=== PATIENT | female | born 1935 | race Caucasian/White ===

== ENCOUNTER 2018-01-08 22:50 | Inpatient (IN) | payer MEDICARE, BC, MEDICAID ==
--- NOTE | 2018-01-08 23:12 | ERNOTE ---
Dyspnea - General Presenting Symptoms: shortness of breath, difficulty of breathing Time Seen by Provider: 01/08/18 22:54 Source: patient, EMS Exam Limitations: clinical condition - Immun/Allergies/Home Medications Immunizations: IMMUNIZATION HX Immunizations Up to Date Yes History of Influenza Vaccine Yes Hx Pneumococcal Vaccination Yes Allergies/Adverse Reactions: Allergies azithromycin [From Zithromax] Adverse Reaction (Verified 01/08/18 22:59) Muscle Pain ciprofloxacin [From Cipro] Adverse Reaction (Verified 01/08/18 22:59) ciprofloxacin HCl [From Cipro] Adverse Reaction (Verified 01/08/18 22:59) levofloxacin [From Levaquin] Adverse Reaction (Verified 01/08/18 22:59) Muscle Pain Home Medications: HOME MEDICATIONS ALPRAZolam [Xanax] 0.25 mg PO TID PRN 05/26/16 [Last Taken Unknown] Albuterol Sulfate 2.5 mg IH QID 05/26/16 [Last Taken Unknown] Albuterol Sulfate [Proair Hfa] 2 puff IH Q4H PRN 05/26/16 [Last Taken Unknown] Aspirin 81 mg PO DAILY 05/26/16 [Last Taken Unknown] Atorvastatin Calcium 40 mg PO HS 05/26/16 [Last Taken Unknown] B-Complex with Vitamin C [Vitamin B-Complex & C] 1 each PO DAILY 05/26/16 [Last Taken Unknown] Cholecalciferol (Vitamin D3) [Vitamin D3] 5,000 unit PO DAILY 05/26/16 [Last Taken Unknown] Docusate Sodium [Stool Softener] 50 mg PO PRN PRN 05/26/16 [Last Taken Unknown] Enalapril Maleate [Vasotec] 2.5 mg PO DAILY 05/26/16 [Last Taken Unknown] Formoterol Fumarate [Perforomist] 1 vial IH BID 05/26/16 [Last Taken Unknown] Nitroglycerin 0.4 mg SL Q5MX3 PRN 05/26/16 [Last Taken Unknown] Oxygen 3.5 l IH DAILY 05/26/16 [Last Taken Unknown] Polyethylene Glycol 3350 [Miralax] 17 gm PO PRN PRN 05/26/16 [Last Taken Unknown ] Albuterol Sulfate [Ventolin HFA] 2 puff IH Q4H PRN 10/18/16 [Last Taken Unknown] Furosemide [Lasix] 20 mg PO DAILY 10/18/16 [Last Taken Unknown] HYDROcodone/ACETAMINOPHEN [Hydrocodon-Acetamin 7.5-325/15] 15 ml PO Q6H PRN [Last Taken Unknown] Ipratropium [place] [Atrovent] 0.5 mg IH Q6H 10/18/16 [Last Taken Unknown] Morphine Sulfate [Morphine Sulfate Conc. Oral Solution] 5 mg PO Q4H PRN [Last Taken Unknown] predniSONE [Jax] 10 mg PO DAILY 10/18/16 [Last Taken Unknown] Acetylcysteine [Mucomyst 20%] 800 mg IH Q12H #20 vial 10/25/16 [Last Taken Unknown] Cefdinir [Omnicef] 300 mg PO BID #8 capsule 10/25/16 [Last Taken Unknown] predniSONE [Prednisone] See Taper PO DAILY #30 tablet 10/25/16 [Last Taken Unknown] Doxycycline Monohydrate 100 mg PO BID #20 tablet 11/15/17 [Last Taken Unknown] predniSONE [Prednisone] 3 tab PO DAILY #9 tab 11/15/17 [Last Taken Unknown] - History of Present Illness Narrative: Pt had onset of cough and fever approx 3 days ago. She was seen by Dr. Butler in the office today and was sent home with cefdinir and prednisone. She continued to worsen. Upon arrival pt is on 12 lpm per NRB Severity: moderate, severe Treatment [employer] INTELLIGENCE OFFICER: paramedics Initiating event: Reports: unknown Modifying Factors - (Improves): Reports: albuterol, oxygen Review of Systems - Review of Systems Constitutional: Present: recent illness, fever, chills, fatigue, malaise EYE: Present: no symptoms reported ENT: Present: nasal drainage Respiratory: Present: shortness of breath, cough, wheezing Cardiology: Absent: chest pain, palpitations Gastrointestinal/Abdominal: Present: no symptoms reported - Patient's Past Medical History Patient History - Medical: Anxiety, Arthritis, Diabetes Type 2, GERD, UTI'S Patient History - Cardiac/Respiratory: COPD Patient History - Cancer: No Hx of Cancer Patient History - Surgical Procedures: Angioplasty, Cholecystectomy, Colonoscopy , D & C, Other Patient History - Other: Chronic Steroid Therapy - Family History Mother Family History - Medical: Dementia Family History - Cardiac/Respiratory: Hypertension Father Family History - Medical: Family History - Cardiac/Respiratory: Asthma, Coronary Heart Disease - Social History Abuse History: No History of abuse Psych History: No pertinent hx - Immunizations Immunizations Up to Date: Yes Hx Pneumococcal Vaccination: Yes History of Influenza Vaccine: Yes Physical Exam - Physical Exam General Appearance: Present: wd/wn, alert, mild distress Head Exam: Present: normal inspection, no evidence of injury Ears, Nose, Throat: Present: normal ENT inspection Neck: Present: normal inspection, nontender Respiratory: Present: no accessory muscle use, rhonchi, wheezing Cardiovascular/Chest: Present: regular rate, rhythm Extremity Exam: Present: normal inspection, non-tender, pedal edema Neurological Exam: Present: alert, oriented, no motor/sensory deficits Skin Exam: Present: normal color, warm/dry Lymphatic Exam: Present: no adenopathy ED Progress - Results and Orders Patient's Lab Results:: I have reviewed the patient's lab results. Results and Orders: Laboratory Tests 01/08/18 01/08/18 01/08/18 22:59 23:10 23:10 WBC 16.7 H Hgb 11.0 L Hct 36.4 L Plt Count TNP Neutrophils % 87.2 H pCO2 102.4 H* pO2 363.4 H HCO3 40.5 H Total CO2 43.6 H Base Excess 9.4 H ABG pH 7.22 L ABG O2 Sat (Measured) 99.7 H Sodium 138 Potassium 4.9 H Chloride 99 Carbon Dioxide 37.0 H BUN 12 Creatinine 0.61 Random Glucose 167 H Calcium 8.6 Total Bilirubin 0.3 AST 28 ALT 26 Alkaline Phosphatase 99 B-Natriuretic Peptide 895 H Total Protein 6.6 Albumin 2.1 L Influenza Type A Ag Influenza Type B Ag 01/08/18 23:10 WBC Hgb Hct Plt Count Neutrophils % pCO2 pO2 HCO3 Total CO2 Base Excess ABG pH ABG O2 Sat (Measured) Sodium Potassium Chloride Carbon Dioxide BUN Creatinine Random Glucose Calcium Total Bilirubin AST ALT Alkaline Phosphatase B-Natriuretic Peptide Total Protein Albumin Influenza Type A Ag Negative Influenza Type B Ag Negative Laboratory Tests 01/09/18 01:12 pCO2 84.5 H* pO2 110.6 H HCO3 37.7 H Total CO2 40.3 H Base Excess 8.2 H ABG pH 7.27 L ABG O2 Sat (Measured) 97.1 - Vital Signs Patient's Vital Signs:: I have reviewed the patient's vital signs. - EKG EKG: NSR EKG read: Interp. by me EKG Comments: Old [place]. No acute ST-T wave changes - X-Ray X-Ray #1 X-Ray: chest Interpretation: Interp. by me X-ray Comments: mild pulmonary edema RLL infiltrate. - Progress/Reassessment Progress:: Improved Progress Note-Subjective: 01/08/2018 23:15 ABG showed high O2 and CO2, O2 reduced to keep SaO2 93-97% 01/09/2018 00:40 ABG #2 improved over initial, CO2 still high 01/09/18 02:00 spoke with Lilli GARICA hospitalist. She will see the patient in the ED and would like me to initiate Bi-PAP in the ED and make sure the patient tolerates it. 01/09/18 02:49 Pt tolerating BiPAP well, admission orders in progress Departure Clinical Impression: Community acquired bacterial pneumonia CHF (congestive heart failure) Qualifiers: Congestive heart failure type: systolic Congestive heart failure chronicity: acute on chronic Qualified Code(s): I50.23 - Acute on chronic systolic ( congestive) heart failure - Departure Disposition: Still a patient Condition: Stable
[2018-01-08 23:15] LABS: Hematocrit 36.4 % (37.0-47.0); Mean Cell Volume 96.6 fl (78-100); Mean Corpuscular Hemoglobin 29.2 pg (27-31); Mean Corpuscular Hgb Conc 30.2 g/dl (32-36); Neutrophil # 14.6 K/mm3 (1.3-6.0); Neutrophil % 87.2 % (42-75.0); Red Blood Count 3.77 M/mm3 (4.2-5.4); Red Cell Distribution Width 13.6 % (11.5-14.0); White Blood Count 16.7 K/mm3 (4.0-10.5)
[2018-01-08 23:40] LABS: Albumin * 2.1 gm/dl (3.4-5.0); Anion Gap 6.9 mmol/L (6.8-13.8); BUN/Creatinine Ratio 19.7 (9.0-21.6); Bilirubin, Total 0.3 mg/dL (0.0-1.1); Ca. Corrected For Albumin 9.8 mg/dL (8.4-10.2); Calcium * 8.6 mg/dL (7.9-10.9); Potassium 4.9 mmol/L (3.4-4.6); Total Protein 6.6 gm/dL (6.2-8.2)
[2018-01-09] MEDS ORDERED: FUROSEMIDE 10 MG/ML VIAL IV ONE (02:47)
[2018-01-09] MEDS ORDERED: FUROSEMIDE 10 MG/ML VIAL ONE (02:54)
[2018-01-09] MEDS: ALBUTEROL SULFATE/IPRATROPIUM 3 ML NEBU IH SCH ×6 (04:14→22:10)
--- NOTE | 2018-01-09 05:21 | HP ---
Chief Complaint - Chief Complaint Date of Service: 01/09/18 Time of Service: 05:00 Chief Complaint: ' Worsening SOB, Desaturations to 85% RA'. Source of HPI- Pt ; unreliable, ERP report, Pt's EMR. History of Present Illness: Mrs. Gordon is a 82-yr-old [place] pt of Dr. Humberto Butler with a PMH of: AAA, Anxiety, COPD, Chronic Respiratory failure, DM II, GERD, HTN, Hiatal Hernia, Migraines and UT. History is unobtainable from the pt due to lethargic state of consciousness. According to the ERP, pt was brought to the [facility] ER due to worsening SOB unrelieved by treatments prescribed during an office visit yesterday. She was seen for URI and was started on Prednisone and Cefdinir. She was found to have Pox levels of 85% RA by the EMS and 4 L was applied en- route to the hospital. However, it is reported that she continued to appear pale /dusky and EMS titrated her to nearly 12 L of Oxygen on a NRB to keep POX above 90%. Work-up at the ED involved ABG which showed uncompensated Respiratory acidosis. Lab studies showed WBC--> 16,700 with a LT shift & BNP -->895, & K--> 4.9, Otherwise all other labs were mostly unremarkable. The CXR showed Pneumonia noted with RLL infiltrate and also mild pulm. Edema. BIPAP initiated at the ED and the pt seemed to tolerate it well. Repeat ABGs showed a very slight improvement. Pt will need to be admitted inpatient for a minimum of 2 midnight due to Acute Hypercapnic Resiratory Failure. - Patient's Past Medical History Patient History - Medical: Anxiety, Arthritis, Diabetes Type 2, GERD, UTI'S Patient History - Cardiac/Respiratory: COPD Patient History - Cancer: No Hx of Cancer Patient History - Surgical Procedures: Angioplasty, Cholecystectomy, Colonoscopy , D & C, Other Patient History - Other: Chronic Steroid Therapy - Family History Mother Family History - Medical: Dementia Family History - Cardiac/Respiratory: Hypertension Father Family History - Medical: Family History - Cardiac/Respiratory: Asthma, Coronary Heart Disease - Social History Living Situations: home Abuse History: No History of abuse Psych History: No pertinent hx Smoking Status: Former smoker Have you smoked in the past 12 months: No Do you dip or chew tobacco: No Patient requests Smoking Cessation Consult: No Initiate information on Smoking Cessation: No Alcohol Use: none Drug Use: none - Immunizations Immunizations Up to Date: Yes Hx Pneumococcal Vaccination: Yes History of Influenza Vaccine: Yes Review Of Systems (GEN) - Review of Systems Additional Comments: ROS unobtainable due to AMS. Immunizations: IMMUNIZATION HX Immunizations Up to Date Yes History of Influenza Vaccine Yes Hx Pneumococcal Vaccination Yes Allergies/Adverse Reactions: Allergies Allergy/AdvReac Type Severity Reaction Status Date / Time azithromycin [From Zithromax] AdvReac Muscle Pain Verified 01/08/18 22:59 ciprofloxacin [From Cipro] AdvReac Verified 01/08/18 22:59 ciprofloxacin HCl AdvReac Verified 01/08/18 22:59 [From Cipro] levofloxacin [From Levaquin] AdvReac Muscle Pain Verified 01/08/18 22:59 Home Medications: HOME MEDICATIONS ALPRAZolam [Xanax] 0.25 mg PO TID PRN 05/26/16 [Last Taken Unknown] Albuterol Sulfate 2.5 mg IH QID 05/26/16 [Last Taken Unknown] Albuterol Sulfate [Proair Hfa] 2 puff IH Q4H PRN 05/26/16 [Last Taken Unknown] Aspirin 81 mg PO DAILY 05/26/16 [Last Taken Unknown] Atorvastatin Calcium 40 mg PO HS 05/26/16 [Last Taken Unknown] B-Complex with Vitamin C [Vitamin B-Complex & C] 1 each PO DAILY 05/26/16 [Last Taken Unknown] Cholecalciferol (Vitamin D3) [Vitamin D3] 5,000 unit PO DAILY 05/26/16 [Last Taken Unknown] Docusate Sodium [Stool Softener] 50 mg PO PRN PRN 05/26/16 [Last Taken Unknown] Enalapril Maleate [Vasotec] 2.5 mg PO DAILY 05/26/16 [Last Taken Unknown] Formoterol Fumarate [Perforomist] 1 vial IH BID 05/26/16 [Last Taken Unknown] Nitroglycerin 0.4 mg SL Q5MX3 PRN 05/26/16 [Last Taken Unknown] Polyethylene Glycol 3350 [Miralax] 17 gm PO PRN PRN 05/26/16 [Last Taken Unknown ] Albuterol Sulfate [Ventolin HFA] 2 puff IH Q4H PRN 10/18/16 [Last Taken Unknown] Furosemide [Lasix] 40 mg PO DAILY 10/18/16 [Last Taken Unknown] Ipratropium [place] [Atrovent] 0.5 mg IH Q6H 10/18/16 [Last Taken Unknown] Morphine Sulfate [Morphine Sulfate Conc. Oral Solution] 2.5 ml PO Q4H PRN [Last Taken Unknown] Cefdinir [Omnicef] 300 mg PO BID #8 capsule 10/25/16 [Last Taken Unknown] Ascorbic Acid [Vitamin C] 1,000 mg PO BID 01/09/18 [Last Taken Unknown] predniSONE [Prednisone] 10 mg PO DAILY 01/09/18 [Last Taken Unknown] predniSONE [Prednisone] See Taper PO DAILY 01/09/18 [Last Taken Unknown] Exam - Exam Vital Signs: Vital Signs - Last Taken Temp 36.5 C 01/09/18 03:15 Pulse 80 01/09/18 04:14 Resp 18 01/09/18 04:14 BP 135/77 01/09/18 04:06 Pulse Ox 95 01/09/18 04:14 Constitutional: Present: Mild distress, Somnolent, Elderly ENT Exam: Present: normal ENT inspection Eye Exam: bilateral eye: normal inspection, PERRL Neck: Present: non-tender, full range of motion, supple Back Exam: Present: normal inspection Respiratory: Present: decreased breath sounds, rales - RT base, No wheezing Cardiovascular/Chest: Present: normal peripheral pulses, regular rate, rhythm, no chest tenderness Abdomen: Present: Normal bowel sounds, soft, nontender /Rectal: Present: Exam deferred Extremity: Present: normal range of motion, non-tender, normal inspection, no pedal edema Skin Exam: Present: warm/dry, no cyanosis Lymphatic: Present: no adenopathy Neurologic: Present: no motor/sensory deficits, other - GSC score of 9 Appearance: Present: impaired insight Eye contact: Absent: cooperative, normal speech Thoughts: Present: no apparent hallucination Diagnostic Studies: Abnormal Lab Results 01/09/18 Range/Units 03:09 pCO2 81.2 H* (32.0-45.0) mmHg pO2 64.2 L (83.0-108.0) mmHg HCO3 39.3 H (21.0-28.0) mmol/L Total CO2 41.8 H (19.0-24.0) mmol/L Base Excess 10.3 H (-2.0-3.0) mmol/L ABG pH 7.30 L (7.35-7.45) ABG O2 Sat (Measured) 89.2 L (94.0-98.0) % Laboratory Results WBC 16.7 K/mm3 (4.0-10.5) H 01/08/18 23:10 RBC 3.77 M/mm3 (4.2-5.4) L 01/08/18 23:10 Hgb 11.0 gm/dL (12.5-16.0) L 01/08/18 23:10 Hct 36.4 % (37.0-47.0) L 01/08/18 23:10 MCV 96.6 fl (78-100) 01/08/18 23:10 MCH 29.2 pg (27-31) 01/08/18 23:10 MCHC 30.2 g/dl (32-36) L 01/08/18 23:10 RDW 13.6 % (11.5-14.0) 01/08/18 23:10 Plt Count TNP 01/08/18 23:10 MPV 10.0 fl (6.0-9.5) H 01/08/18 23:10 Immature Gran % (Auto) 0.80 % (0.001-0.429) H 01/08/18 23:10 Immature Gran # (Auto) 0.13 K/mm3 (0.000-0.0310) H 01/08/18 23:10 Neutrophils % 87.2 % (42-75.0) H 01/08/18 23:10 Lymphocytes % 7.6 % (20-51) L 01/08/18 23:10 Monocytes % 3.9 % (0.0-9) 01/08/18 23:10 Eosinophils % 0.3 % (0.0-3.0) 01/08/18 23:10 Basophils % 0.2 % (0.0-1.0) 01/08/18 23:10 Nucleated RBC % 0.0 k/mm3 (0-1) 01/08/18 23:10 Neutrophils # 14.6 K/mm3 (1.3-6.0) H 01/08/18 23:10 Lymphocytes # 1.3 k/mm3 (1.5-3.5) L 01/08/18 23:10 Monocytes # 0.7 k/mm3 (0.0-1.0) 01/08/18 23:10 Eosinophils # 0.1 k/mm3 (0.0-0.7) 01/08/18 23:10 Absolute Basophils 0.0 k/mm3 (0.0-0.1) 01/08/18 23:10 pCO2 81.2 mmHg (32.0-45.0) H* 01/09/18 03:09 pO2 64.2 mmHg (83.0-108.0) L 01/09/18 03:09 HCO3 39.3 mmol/L (21.0-28.0) H 01/09/18 03:09 Total CO2 41.8 mmol/L (19.0-24.0) H 01/09/18 03:09 Base Excess 10.3 mmol/L (-2.0-3.0) H 01/09/18 03:09 ABG pH 7.30 (7.35-7.45) L 01/09/18 03:09 ABG O2 Sat (Measured) 89.2 % (94.0-98.0) L 01/09/18 03:09 Sodium 138 mmol/L (132-142) 01/08/18 23:10 Plasma Sodium 139 mmol/L (130-142) 01/08/18 23:10 Potassium 4.9 mmol/L (3.4-4.6) H 01/08/18 23:10 Chloride 99 mmol/L (97-106) 01/08/18 23:10 Carbon Dioxide 37.0 mmol/L (24-32.6) H 01/08/18 23:10 Anion Gap 6.9 mmol/L (6.8-13.8) 01/08/18 23:10 BUN 12 mg/dL (3-23) 01/08/18 23:10 Creatinine 0.61 mg/dL (0.4-1.4) 01/08/18 23:10 Est GFR (Non-Af Amer) 100 mL/min (60-130) D 01/08/18 23:10 BUN/Creatinine Ratio 19.7 (9.0-21.6) 01/08/18 23:10 Random Glucose 167 mg/dL (70-110) H 01/08/18 23:10 Lactic Acid, Venous 0.8 mmol/L (0.4-1.9) 01/09/18 01:32 Calcium 8.6 mg/dL (7.9-10.9) 01/08/18 23:10 Calcium Adj for Albumin 9.8 mg/dL (8.4-10.2) 01/08/18 23:10 Total Bilirubin 0.3 mg/dL (0.0-1.1) 01/08/18 23:10 AST 28 U/L (0-48) 01/08/18 23:10 ALT 26 U/L (19-67) 01/08/18 23:10 Alkaline Phosphatase 99 U/L (50-170) 01/08/18 23:10 B-Natriuretic Peptide 895 pg/mL (5-550) H 01/08/18 23:10 Total Protein 6.6 gm/dL (6.2-8.2) 01/08/18 23:10 Albumin 2.1 gm/dl (3.4-5.0) L 01/08/18 23:10 Influenza Type A Ag Negative (NEGATIVE) 01/08/18 23:10 Influenza Type B Ag Negative (NEGATIVE) 01/08/18 23:10 Assessment/Plan - Assessment/Plan (1) Acute hypercapnic respiratory failure Assessment: Pt noted to have somnolence and severe hypercapnea. ABGs showed uncompensated Respiratory acidosis. BiPAP initiated at the ED with IPAP/EPAP of 12/6 to improve ventilation. She tolerated being on it and ABGs had slight improvement. Will continue with the current settings and monitor ABGs in am. Laboratory Tests 01/08/18 01/09/18 01/09/18 22:59 01:12 03:09 pCO2 102.4 H* 84.5 H* 81.2 H* pO2 363.4 H 110.6 H 64.2 L HCO3 40.5 H 37.7 H 39.3 H ABG pH 7.22 L 7.27 L 7.30 L ABG O2 Sat (Measured) 99.7 H 97.1 89.2 L Problem: Acute (2) Pneumonia Assessment: CXR showed RLL. Given Rocephin at the ED but will need addition of macrolide such as Azithromycin, however it is listed on pt's allergy list and also has allergy to the flouroqunolones. May consider treating with Cefepime or Zosyn while inpatient. Problem: Acute Qualifiers: Laterality: right Lung location: lower lobe of lung (3) COPD exacerbation Assessment: Plans as above with Duonebs, IV ax, IV steroids. Problem: Acute (4) GERD (gastroesophageal reflux disease) Problem: Chronic (5) Anemia Problem: Chronic (6) Anxiety Problem: Chronic (7) Hyperlipidemia Problem: Chronic (8) Hypertension Problem: Chronic Qualifiers: Hypertension type: essential hypertension Qualified Code(s): I10 - Essential (primary) hypertension
[2018-01-09 05:46] LABS: Hematocrit 35.5 % (37.0-47.0); Hemoglobin 10.3 gm/dL (12.5-16.0); Mean Cell Volume 99.2 fl (78-100); Mean Corpuscular Hemoglobin 28.8 pg (27-31); Neutrophil # 13.7 K/mm3 (1.3-6.0); Neutrophil % 92.9 % (42-75.0); Platelet Count 326 K/mm3 (150-450); Red Blood Count 3.58 M/mm3 (4.2-5.4); Red Cell Distribution Width 13.6 % (11.5-14.0); White Blood Count 14.7 K/mm3 (4.0-10.5)
[2018-01-09 05:56] LABS: BUN/Creatinine Ratio 17.9 (9.0-21.6); Calcium * 8.6 mg/dL (7.9-10.9); Estimated Creat Clear 60.3
[2018-01-09] MEDS ORDERED: NITROGLYCERIN 0.4 MG/TAB BTL SL PRN (07:20)
[2018-01-09] MEDS ORDERED: DOCUSATE SODIUM 150 MG/15 ML BTL PO PRN (07:20)
[2018-01-09] MEDS ORDERED: MORPHINE SULFATE 10 MG/0.5 ML SYRINGE PO PRN (07:20)
[2018-01-09] MEDS ORDERED: POLYETHYLENE GLYCOL 3350 119 GM BTL PO PRN ×2 (07:20→08:00)
[2018-01-09 07:56] LABS: Urine Appearance Clear; Urine Bacteria None Seen; Urine Bilirubin Negative (NEGATIVE); Urine Blood Negative /ul (NEGATIVE); Urine Color Pale Yellow; Urine Ketone Negative (NEGATIVE); Urine Nitrite Negative (NEGATIVE); Urine Protein Negative (NEGATIVE); Urine RBC None Seen /hpf (0-5); Urine Urobilinogen Normal (NORMAL); Urine WBC None Seen /hpf (0-5)
[2018-01-09] MEDS: METHYLPREDNISOLONE SOD SUCC 80 MG in WATER FOR INJ.,BACTERIOSTATIC 0 ML IV SCH ×4 (08:15→23:46)
[2018-01-09] MEDS: HEPARIN SODIUM,PORCINE 5,000 UNITS/ML VIAL SC SCH ×2 (08:15→17:26)
[2018-01-09] MEDS: CEFEPIME HCL IV SCH ×4 (08:29→20:23)
[2018-01-09] MEDS: DEXTROSE 5% IV SCH ×4 (08:29→20:23)
[2018-01-09] MEDS: WATER IV SCH ×4 (08:29→20:23)
[2018-01-09] MEDS: ASPIRIN 81 MG TAB.CHEW PO SCH (08:30)
[2018-01-09] MEDS: ENALAPRIL MALEATE 5 MG TABLET PO SCH (08:30)
[2018-01-09] MEDS: CHOLECALCIFEROL 5,000 UNIT TABLET PO SCH (08:30)
[2018-01-09] MEDS: ASCORBIC ACID 500 MG TABLET PO SCH ×2 (08:30→20:26)
[2018-01-09] MEDS: VITAMIN B COMP W-C 1 TAB TABLET PO SCH (08:30)
[2018-01-09] MEDS: FORMOTEROL FUMARATE 20 MCG/2 ML VIAL IH SCH ×2 (08:52→18:30)
[2018-01-09] MEDS: ALPRAZolam 0.25 MG TABLET PO PRN ×2 (16:47→22:22)
[2018-01-09] MEDS: ROSUVASTATIN CALCIUM 20 MG TABLET PO SCH (20:26)
[2018-01-09] MEDS: MORPHINE SULFATE 10 MG/0.5 ML SYRINGE PO PRN (22:23)
[2018-01-10] MEDS: ALBUTEROL SULFATE/IPRATROPIUM 3 ML NEBU IH SCH ×6 (02:05→22:37)
[2018-01-10] MEDS: METHYLPREDNISOLONE SOD SUCC 80 MG in WATER FOR INJ.,BACTERIOSTATIC 0 ML IV SCH ×3 (05:21→17:25)
[2018-01-10] MEDS: HEPARIN SODIUM,PORCINE 5,000 UNITS/ML VIAL SC SCH ×2 (05:22→17:25)
[2018-01-10] MEDS: FORMOTEROL FUMARATE 20 MCG/2 ML VIAL IH SCH ×2 (06:07→19:15)
--- NOTE | 2018-01-10 06:34 | OR ---
Anesthesia Procedure Note - Anesthesia Procedure Note Date of Service: 01/10/18 Narrative: Vital Signs - Last Taken Temp 37.2 C 01/10/18 03:00 Pulse 99 01/10/18 06:17 Resp 24 H 01/10/18 06:17 BP 152/70 01/10/18 03:00 Pulse Ox 97 01/10/18 06:07 O2 Oxygen Delivery Method Nasal Cannula 01/10/18 06:33 ANESTHESIA PROCEDURE NOTE Date of Procedure: 01/09/2018 Time of procedure: 0. Performed by: Imtiaz Conde CRNA, ENERGY RATER, MSN Preprocedure diagnosis: Pneumonia, lack of IV access. Post procedure diagnosis: Same. Procedure: Venipuncture for IV access. Indications: Pneumonia, chronic of IV access. Findings: See below. Details of the procedure: The patient was prepped with Betadine and alcohol, 0.1 mL of 1% lidocaine solution was injected at the intended IV site. November 24 gauge IV was initiated in the left hand, flushed and secured. EBL: Minimal. Fluids: N/A. Specimen: N/A. Post procedure condition: The patient tolerated the procedure well. No complications were noted. Thank you for this consultation. Imtiaz Conde CRNA, ENERGY RATER, MSN
[2018-01-10] MEDS: ALPRAZolam 0.25 MG TABLET PO PRN ×2 (06:42→21:31)
[2018-01-10] MEDS: CEFEPIME HCL IV SCH ×4 (06:43→19:29)
[2018-01-10] MEDS: DEXTROSE 5% IV SCH ×4 (06:43→19:29)
[2018-01-10] MEDS: WATER IV SCH ×4 (06:43→19:29)
--- NOTE | 2018-01-10 07:38 | PN ---
Subjective - Date and Time Seen Date: 01/10/18 Time: 07:34 Subjective Narrative: Pt. feels worse this am as she states she didn't hardly sleep all night. She had her xanax and morphine, which usually works well for her at home. Objective - Review of Systems Generalized/Overall Review: Reports: Weakness, Fatigue. Denies: Chills, Fever EENTM: Reports: No Symptoms Reported Respiratory: Reports: Cough, Shortness of Breath Cardiac: Reports: No Symptoms Reported Abdominal: Reports: No Symptoms Reported Genitourinary Symptoms: Reports: No Symptoms Reported Musculoskeletal Complaints: Reports: No Symptoms Reported Neurological: Reports: No Symptoms Reported Skin: Reports: No Symptoms Reported Endocrine: Reports: No Symptoms Reported - Vitals Vitals: Last Vital Signs Temp 36.9 C 01/10/18 06:36 Pulse 99 01/10/18 06:17 Resp 22 H 01/10/18 06:36 BP 143/58 01/10/18 06:36 Pulse Ox 99 01/10/18 06:36 - Exam Constitutional: Present: Alert, Oriented x3, Cooperative, Moderate distress, Other - on O2, Elderly ENT Exam: Present: hearing grossly normal Neck: Present: supple Respiratory: Present: decreased breath sounds, accessory muscle use, wheezing, expiration (prolonged) Cardiovascular/Chest: Present: regular rate, rhythm, no edema Abdomen: Present: Normal bowel sounds Neurologic: Present: oriented x 3, depressed affect Appearance: Present: appropriate appearance, appropriate insight, neat Eye contact: Present: cooperative, good eye contact, normal speech Thoughts: Present: normal thought pattern, no apparent hallucination Assessment/Plan - Problems/Diagnosis (1) Insomnia Problem: Acute Qualifiers: Insomnia type: primary Qualified Code(s): F51.01 - Primary insomnia Narrative: will continue her xanax and morphine at hs to help her relax and sleep as she does at home. (2) Acute hypercapnic respiratory failure Problem: Acute Narrative: improved. can d/c bipap. (3) COPD exacerbation Problem: Acute Narrative: acute exacerbation of chronic COPD. steroids and cefipime. (4) Community acquired bacterial pneumonia Problem: Acute Narrative: cefepime with resumption of the cefdinir at time of discharge. (5) Leukocytosis Problem: Acute Qualifiers: Leukocytosis type: unspecified Qualified Code(s): D72.829 - Elevated white blood cell count, unspecified Narrative: due to pneumonia. (6) Anxiety Problem: Chronic Narrative: continue prn xanax, at hs for insomnia. (7) Diabetes Problem: Chronic Qualifiers: Diabetes mellitus type: type 2 Diabetes mellitus complication status: without complication Diabetes mellitus half-way insulin use: without equipment operator intermodal yard use Qualified Code(s): E11.9 - Type 2 diabetes mellitus without complications Narrative: will do SSI while here in the hospital due to the steroids. (8) Discharge planning issues Problem: Acute Narrative: hopefully home in a couple days.
[2018-01-10] MEDS: ASCORBIC ACID 500 MG TABLET PO SCH ×2 (09:03→21:30)
[2018-01-10] MEDS: ASPIRIN 81 MG TAB.CHEW PO SCH (09:03)
[2018-01-10] MEDS: VITAMIN B COMP W-C 1 TAB TABLET PO SCH (09:03)
[2018-01-10] MEDS: ENALAPRIL MALEATE 5 MG TABLET PO SCH (09:03)
[2018-01-10] MEDS: CHOLECALCIFEROL 5,000 UNIT TABLET PO SCH (09:03)
[2018-01-10] MEDS: MORPHINE SULFATE 10 MG/0.5 ML SYRINGE PO PRN ×3 (12:02→21:30)
[2018-01-10] MEDS: ROSUVASTATIN CALCIUM 20 MG TABLET PO SCH (21:29)
[2018-01-11] MEDS: METHYLPREDNISOLONE SOD SUCC 80 MG in WATER FOR INJ.,BACTERIOSTATIC 0 ML IV SCH ×3 (00:47→17:34)
[2018-01-11] MEDS: ALBUTEROL SULFATE/IPRATROPIUM 3 ML NEBU IH SCH ×6 (02:22→22:07)
[2018-01-11] MEDS: HEPARIN SODIUM,PORCINE 5,000 UNITS/ML VIAL SC SCH ×2 (05:10→17:34)
[2018-01-11] MEDS: FORMOTEROL FUMARATE 20 MCG/2 ML VIAL IH SCH ×2 (06:02→18:16)
[2018-01-11 07:18] LABS: Hematocrit 33.6 % (37.0-47.0); Hemoglobin 10.4 gm/dL (12.5-16.0); Mean Cell Volume 94.4 fl (78-100); Mean Corpuscular Hemoglobin 29.2 pg (27-31); Mean Platelet Volume 9.6 fl (6.0-9.5); Neutrophil # 13.3 K/mm3 (1.3-6.0); Platelet Count 417 K/mm3 (150-450); Red Blood Count 3.56 M/mm3 (4.2-5.4); Red Cell Distribution Width 13.4 % (11.5-14.0); White Blood Count 14.3 K/mm3 (4.0-10.5)
[2018-01-11 07:42] LABS: Albumin * 2.4 gm/dl (3.4-5.0); Anion Gap 8.5 mmol/L (6.8-13.8); BUN/Creatinine Ratio 22.8 (9.0-21.6); Bilirubin, Total 0.2 mg/dL (0.0-1.1); Ca. Corrected For Albumin 10.5 mg/dL (8.4-10.2); Calcium * 9.5 mg/dL (7.9-10.9); Carbon Dioxide 39.2 mmol/L (24-32.6); Potassium 4.7 mmol/L (3.4-4.6); Total Protein 6.3 gm/dL (6.2-8.2)
[2018-01-11] MEDS: CEFEPIME HCL IV SCH ×2 (08:17)
[2018-01-11] MEDS: DEXTROSE 5% IV SCH ×2 (08:17)
[2018-01-11] MEDS: WATER IV SCH ×2 (08:17)
[2018-01-11] MEDS: ASPIRIN 81 MG TAB.CHEW PO SCH (08:20)
[2018-01-11] MEDS: VITAMIN B COMP W-C 1 TAB TABLET PO SCH (08:20)
[2018-01-11] MEDS: ASCORBIC ACID 500 MG TABLET PO SCH ×2 (08:20→21:26)
[2018-01-11] MEDS: ENALAPRIL MALEATE 5 MG TABLET PO SCH ×3 (08:20→21:26)
[2018-01-11] MEDS: CHOLECALCIFEROL 5,000 UNIT TABLET PO SCH (08:21)
--- NOTE | 2018-01-11 11:00 | PN ---
Subjective - Date and Time Seen Date: 01/11/18 Time: 07:00 Subjective Narrative: Nursing states was having visual hallucinations last night. Pt. states she did see them, but they weren't anything to be afraid of and so why worry. She states that she couldn't use the CPAP this am (recommended for concerns for worsening CO2 levels) because it makes "water gush out of her eyes!". She feels better this am, but definitely not well enough to go home. Objective - Review of Systems Generalized/Overall Review: Reports: Weakness. Denies: Chills, Fever EENTM: Reports: No Symptoms Reported Respiratory: Reports: Cough, Shortness of Breath, Wheezing Cardiac: Reports: No Symptoms Reported Abdominal: Reports: No Symptoms Reported Genitourinary Symptoms: Reports: No Symptoms Reported Musculoskeletal Complaints: Reports: No Symptoms Reported Neurological: Reports: Weakness, Other - pyschosis Skin: Reports: No Symptoms Reported Endocrine: Reports: No Symptoms Reported - Vitals Vitals: Last Vital Signs Temp 36.8 C 01/11/18 09:02 Pulse 85 01/11/18 10:43 Resp 20 01/11/18 10:43 BP 145/74 01/11/18 09:02 Pulse Ox 95 01/11/18 10:43 - Abnormal Lab Findings Abnormal Lab Findings: Abnormal Lab Results 01/11/18 01/11/18 01/11/18 Range/Units 04:14 07:12 07:12 WBC 14.3 H (4.0-10.5) K/mm3 RBC 3.56 L (4.2-5.4) M/mm3 Hgb 10.4 L (12.5-16.0) gm/dL Hct 33.6 L (37.0-47.0) % MCHC 31.0 L (32-36) g/dl MPV 9.6 H (6.0-9.5) fl Immature Gran % (Auto) 1.10 H (0.001-0.429) % Immature Gran # (Auto) 0.16 H (0.000-0.0310) K/mm3 Neutrophils % 93.0 H (42-75.0) % Lymphocytes % 3.0 L (20-51) % Neutrophils # 13.3 H (1.3-6.0) K/mm3 Lymphocytes # 0.4 L (1.5-3.5) k/mm3 pCO2 62.7 H (32.0-45.0) mmHg pO2 76.1 L (83.0-108.0) mmHg HCO3 38.9 H (21.0-28.0) mmol/L Total CO2 40.8 H (19.0-24.0) mmol/L Base Excess 12.0 H (-2.0-3.0) mmol/L Potassium 4.7 H (3.4-4.6) mmol/L Carbon Dioxide 39.2 H (24-32.6) mmol/L BUN/Creatinine Ratio 22.8 H (9.0-21.6) Random Glucose 176 H (70-110) mg/dL Calcium Adj for Albumin 10.5 H (8.4-10.2) mg/dL Albumin 2.4 L (3.4-5.0) gm/dl - Exam Constitutional: Present: Alert, Oriented x3, Cooperative, Mild distress, Moderate distress, Elderly ENT Exam: Present: hearing grossly normal Neck: Present: supple Respiratory: Present: respiratory distress, decreased breath sounds, accessory muscle use, wheezing, expiration (prolonged) Cardiovascular/Chest: Present: regular rate, rhythm, no murmur Abdomen: Present: Normal bowel sounds, soft, nontender Skin Exam: Present: normal color Neurologic: Present: oriented x 3, other - dysphoric Appearance: Present: appropriate appearance, appropriate insight, neat Eye contact: Present: cooperative, good eye contact, normal speech Thoughts: Present: visual hallucinations Assessment/Plan - Problems/Diagnosis (1) Insomnia Problem: Acute Qualifiers: Insomnia type: primary Qualified Code(s): F51.01 - Primary insomnia Narrative: doesn't appear to have been better last night. could be the steroids, which may also have caused her psychosis so will reduce the steroids. (2) Acute hypercapnic respiratory failure Problem: Acute Narrative: slightly worse based on ABG, but pt. declining BIPAP. will work to keep O2 Sats < 95% as this may help keep CO2 less. also have her work on [place]. (3) COPD exacerbation Problem: Acute Narrative: better, but still working to breath. Chronic COPD with acute exacerbation. (4) Community acquired bacterial pneumonia Problem: Acute Narrative: continue IV cefepime for now. (5) Leukocytosis Problem: Acute Qualifiers: Leukocytosis type: unspecified Qualified Code(s): D72.829 - Elevated white blood cell count, unspecified (6) Anxiety Problem: Chronic Narrative: stable (7) Diabetes Problem: Chronic Qualifiers: Diabetes mellitus type: type 2 Diabetes mellitus complication status: without complication Diabetes mellitus nursing home insulin use: without nursing home use Qualified Code(s): E11.9 - Type 2 diabetes mellitus without complications Narrative: stable no changes. (8) Psychosis Problem: Acute Qualifiers: Psychosis type: brief psychotic disorder Qualified Code(s): F23 - Brief psychotic disorder Narrative: due to steroids? will reduce dose to see if this helps. (9) Discharge planning issues Problem: Acute Narrative: discharge when things have improved more and no further psychosis.
[2018-01-11] MEDS: ALPRAZolam 0.25 MG TABLET PO PRN ×2 (13:31→21:25)
[2018-01-11] MEDS: MORPHINE SULFATE 10 MG/0.5 ML SYRINGE PO PRN (14:26)
[2018-01-11] MEDS ORDERED: ENALAPRILAT DIHYDRATE 1.25 MG/ML VIAL IV PRN (14:54)
[2018-01-11] MEDS ORDERED: LORazepam 2 MG/ML DISP.SYRIN IV ONE (16:31)
[2018-01-11] MEDS: ROSUVASTATIN CALCIUM 20 MG TABLET PO SCH (21:26)
[2018-01-12] MEDS: ALPRAZolam 0.25 MG TABLET PO PRN ×2 (00:33→15:01)
[2018-01-12] MEDS: WATER IV SCH ×4 (00:37→14:37)
[2018-01-12] MEDS: DEXTROSE 5% IV SCH ×4 (00:37→14:37)
[2018-01-12] MEDS: CEFEPIME HCL IV SCH ×4 (00:37→14:37)
[2018-01-12] MEDS: ALBUTEROL SULFATE/IPRATROPIUM 3 ML NEBU IH SCH ×6 (02:17→22:07)
[2018-01-12] MEDS: FORMOTEROL FUMARATE 20 MCG/2 ML VIAL IH SCH ×2 (05:59→18:09)
[2018-01-12] MEDS: HEPARIN SODIUM,PORCINE 5,000 UNITS/ML VIAL SC SCH ×2 (09:19→17:22)
[2018-01-12] MEDS: ASPIRIN 81 MG TAB.CHEW PO SCH (09:27)
[2018-01-12] MEDS: VITAMIN B COMP W-C 1 TAB TABLET PO SCH (09:34)
[2018-01-12] MEDS: ASCORBIC ACID 500 MG TABLET PO SCH ×3 (09:34→20:44)
[2018-01-12] MEDS: CHOLECALCIFEROL 5,000 UNIT TABLET PO SCH (09:35)
[2018-01-12] MEDS: ENALAPRIL MALEATE 5 MG TABLET PO SCH ×3 (09:41→20:44)
[2018-01-12] MEDS ORDERED: WATER IV SCH ×2 (10:00)
[2018-01-12] MEDS ORDERED: DEXTROSE 5% IV SCH ×2 (10:00)
[2018-01-12] MEDS ORDERED: CEFEPIME HCL IV SCH ×2 (10:00)
[2018-01-12] MEDS ORDERED: METHYLPREDNISOLONE SOD SUCC 80 MG in WATER FOR INJ.,BACTERIOSTATIC 0 ML IV SCH (10:00)
--- NOTE | 2018-01-12 10:49 | PN ---
Subjective - Date and Time Seen Date: 01/12/18 Time: 10:35 Subjective Narrative: Pt. still very confused at times, agitated, but can be calmed. She denies any issues. Nursing notes reviewed in regards to confusion/agitation. Objective Objective Narrative: Keeps her eyes closed, moans, but really doesn't appear to be in any distress. O2 is 100% on 2LNC, reduced to 1.5L by me. - Review of Systems Generalized/Overall Review: Reports: Weakness. Denies: Chills, Fever EENTM: Reports: No Symptoms Reported Respiratory: Reports: Cough. Denies: Shortness of Breath Cardiac: Denies: Chest Pain, Edema, Palpitations Abdominal: Denies: Nausea, Vomiting, Abdominal Pain, Diarrhea Genitourinary Symptoms: Reports: No Symptoms Reported Musculoskeletal Complaints: Reports: No Symptoms Reported Neurological: Reports: Weakness, Other - psychosis, confusion at times. Skin: Reports: No Symptoms Reported Endocrine: Reports: No Symptoms Reported - Vitals Vitals: Last Vital Signs Temp 36.1 C L 01/12/18 10:17 Pulse 72 01/12/18 10:17 Resp 20 01/12/18 10:17 BP 158/82 01/12/18 10:17 Pulse Ox 100 01/12/18 10:17 - Abnormal Lab Findings Abnormal Lab Findings: Abnormal Lab Results 01/11/18 Range/Units 15:36 pCO2 59.9 H (32.0-45.0) mmHg pO2 61.0 L (83.0-108.0) mmHg HCO3 38.6 H (21.0-28.0) mmol/L Total CO2 40.4 H (19.0-24.0) mmol/L Base Excess 12.1 H (-2.0-3.0) mmol/L ABG O2 Sat (Measured) 91.3 L (94.0-98.0) % - EKG/Xray Findings EKG: NSR EKG read: Interp. by me - Exam Constitutional: Present: Alert, Cooperative, Mild distress, Elderly ENT Exam: Present: hearing grossly normal Neck: Present: supple Respiratory: Present: wheezing, expiration (prolonged) - coarse bs arben, with wheezing. fair AE arben. Cardiovascular/Chest: Present: regular rate, rhythm, no murmur Abdomen: Present: Normal bowel sounds, soft, nontender, distended Extremity: Present: calf tenderness. Absent: lower extremity edema Skin Exam: Present: normal color Neurologic: Present: depressed affect Appearance: Present: neat, impaired insight Eye contact: Present: cooperative, avoids eye contact Thoughts: Present: visual hallucinations Assessment/Plan - Problems/Diagnosis (1) Insomnia Problem: Acute Qualifiers: Insomnia type: primary Qualified Code(s): F51.01 - Primary insomnia Narrative: xanax prn at hs. (2) Acute hypercapnic respiratory failure Problem: Acute Narrative: improved. most likely she has chronic hypercapnic respiratory failure, but her CO2 and O2 sats have remained stable. no changes at this time except reduction of her O2 to keep her sats closer to 95%. (3) COPD exacerbation Problem: Acute Narrative: improving based on AE improvement and need for less O2. will change from IV to PO steroids. (4) Community acquired bacterial pneumonia Problem: Acute Narrative: improving. Will change her to po Cefdinir and see how she does with this. anticipate her being discharged on this medication. (5) Leukocytosis Problem: Acute Qualifiers: Leukocytosis type: unspecified Qualified Code(s): D72.829 - Elevated white blood cell count, unspecified Narrative: continues most likely due to steroids. it is improved from the 20k prior to admission. (6) Anxiety Problem: Chronic Narrative: stable (7) Diabetes Problem: Chronic Qualifiers: Diabetes mellitus type: type 2 Diabetes mellitus complication status: without complication Diabetes mellitus fpc insulin use: without fpc use Qualified Code(s): E11.9 - Type 2 diabetes mellitus without complications Narrative: better with reduction of steroids. (8) Psychosis Problem: Acute Qualifiers: Psychosis type: brief psychotic disorder Qualified Code(s): F23 - Brief psychotic disorder Narrative: still present. doubt infection, could be the IV steroids. will change her to prednisone as she's done ok with this in the past. Could be poor sleep and more of a hospital delirium. Continue prn IV ativan if she gets too agitated as this did seem to work ok yesterday. (9) Urinary tract infection Problem: Acute Qualifiers: Urinary tract infection type: acute cystitis Hematuria presence: with hematuria Qualified Code(s): N30.01 - Acute cystitis with hematuria Narrative: based on Urine culture done as outpt. day [employer], grew out E. Coli, sensitive to cetriaxone, so cefdinir should work fine against this and cefepime she was on should be ok as repeat UA was negative. (10) Discharge planning issues Problem: Acute Narrative: hopefully home in the next couple days. Feel most of her issues are good enough for her to go home, but definitely want her psychosis/delirium to improve greatly if not resolve prior to discharge.
[2018-01-12] MEDS: MORPHINE SULFATE 10 MG/0.5 ML SYRINGE PO PRN (13:24)
[2018-01-12] MEDS: METHYLPREDNISOLONE SOD SUCC 80 MG in WATER FOR INJ.,BACTERIOSTATIC 0 ML IV SCH (14:36)
[2018-01-12] MEDS: CEFDINIR 300 MG CAPSULE PO SCH ×2 (20:38→20:44)
[2018-01-12] MEDS: ROSUVASTATIN CALCIUM 20 MG TABLET PO SCH ×2 (20:38→20:44)
[2018-01-13] MEDS: ALPRAZolam 0.25 MG TABLET PO PRN (00:38)
[2018-01-13] MEDS: ALBUTEROL SULFATE/IPRATROPIUM 3 ML NEBU IH SCH ×2 (02:07→05:59)
[2018-01-13] MEDS: HEPARIN SODIUM,PORCINE 5,000 UNITS/ML VIAL SC SCH (05:06)
[2018-01-13] MEDS: FORMOTEROL FUMARATE 20 MCG/2 ML VIAL IH SCH (05:59)
[2018-01-13 06:11] VITALS: BP 142/76
--- NOTE | 2018-01-13 07:11 | DS ---
(1) Insomnia Problem: Acute Qualifiers: Insomnia type: primary Qualified Code(s): F51.01 - Primary insomnia (2) Acute hypercapnic respiratory failure Problem: Acute (3) COPD exacerbation Problem: Acute (4) Community acquired bacterial pneumonia Problem: Acute (5) Leukocytosis Problem: Acute Qualifiers: Leukocytosis type: unspecified Qualified Code(s): D72.829 - Elevated white blood cell count, unspecified (6) Anxiety Problem: Chronic (7) Diabetes Problem: Chronic Qualifiers: Diabetes mellitus type: type 2 Diabetes mellitus complication status: without complication Diabetes mellitus alf insulin use: without intermediate designer use Qualified Code(s): E11.9 - Type 2 diabetes mellitus without complications (8) Psychosis Problem: Acute Qualifiers: Psychosis type: brief psychotic disorder Qualified Code(s): F23 - Brief psychotic disorder (9) Urinary tract infection Problem: Acute Qualifiers: Urinary tract infection type: acute cystitis Hematuria presence: with hematuria Qualified Code(s): N30.01 - Acute cystitis with hematuria (10) Discharge planning issues Problem: Acute Description of Stay: Pt admitted with the following issues: Acute on chronic respiratory failure with hypercapnea: required BIPAP upon admission but went from CO2 > 100 to into the 50's within 12 hrs and so was able to have the bipap discontinued. Her CO2 remained in the upper 50's for the remainder of her stay. Her sats improved from requiring 12 L via BIPAP to keep sats in the low 90's to needing only 1.5L NC at time of discharge to keep sats in low 90's at rest. She does drop into the 80's with activity at this level, but typically was on 3 LNC at home when ambulating. Pneumonia: Given CXR findings, PE findings and elevated WBC of 20K that reduced to 14K with abx. She was initiated on ceftriaxone, changed to cefepime for broader coverage, but then started on cefdinir 24hrs prior to discharge, maintaining her improvements. Acute on Chronic COPD exacerbation. She was placed on abx and IV solumedrol. Her lungs did improve greatly during her stay, with improved AE, but still very coarse rales arben, which is fairly normal for her. 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 E. coli sensitive to ceftriaxone. Tx with abx DM2: sugars ran slightly high on the high does solumedrol, but was 90 the am of discharge on no meds for DM and with change to prednisone. Psychosis: believe this was due to high dose steroids and not sleeping. She is alert, oriented this am, but does get quite confused in the evening. Her going home and being on prednisone instead of solumedrol should resolve this. Procedures Performed: none Discharge Disposition: Home w/home health care Disposition: Home Health Service Condition: Stable Discharge Activity: Activity as tolerated Discharge Diet: General/regular food Referrals: Humberto Butler MD [Primary Care Provider] - One Week Additional Patient Instructions (free text): -Please make TCM appointment unless group home discharge. Thank you! Jenn @ [phone]. Resume services with [facility] at discharge. Please call report and fax orders upon discharge. Prescriptions (Any new or edited meds): Cefdinir [Omnicef] 300 mg PO BID #10 capsule predniSONE [Prednisone] See Taper PO DAILY #42 tablet Complete Home Medications List: Complete Home Medication List: ALPRAZolam [Xanax] 0.25 mg PO TID PRN 05/26/16 Albuterol Sulfate 2.5 mg IH QID 05/26/16 Albuterol Sulfate [Proair Hfa] 2 puff IH Q4H PRN 05/26/16 Aspirin 81 mg PO DAILY 05/26/16 Atorvastatin Calcium 40 mg PO HS 05/26/16 B-Complex with Vitamin C [Vitamin B-Complex & C] 1 each PO DAILY 05/26/16 Cholecalciferol (Vitamin D3) [Vitamin D3] 5,000 unit PO DAILY 05/26/16 Docusate Sodium [Stool Softener] 50 mg PO PRN PRN 05/26/16 Enalapril Maleate [Vasotec] 2.5 mg PO DAILY 05/26/16 Formoterol Fumarate [Perforomist] 1 vial IH BID 05/26/16 Nitroglycerin 0.4 mg SL Q5MX3 PRN 05/26/16 Polyethylene Glycol 3350 [Miralax] 17 gm PO PRN PRN 05/26/16 Albuterol Sulfate [Ventolin HFA] 2 puff IH Q4H PRN 10/18/16 Furosemide [Lasix] 40 mg PO DAILY 10/18/16 Ipratropium [place] [Atrovent] 0.5 mg IH Q6H 10/18/16 Cefdinir [Omnicef] 300 mg PO BID #8 capsule 10/25/16 Ascorbic Acid [Vitamin C] 1,000 mg PO BID 01/09/18 predniSONE [Prednisone] 10 mg PO DAILY 01/09/18 predniSONE [Prednisone] See Taper PO DAILY 01/09/18 Morphine Sulfate [Morphine Sulfate 10 MG/5ML Oral Solution] 5 mg PO Q4H PRN Albuterol Sulfate/Ipratropium [Duoneb 2.5-0.5MG/3ML Soln] 3 ml IH Q4HRT nebu Cefdinir [Omnicef] 300 mg PO BID #10 capsule 01/13/18 predniSONE [Prednisone] See Taper PO DAILY #42 tablet 01/13/18
[2018-01-13] MEDS: CEFDINIR 300 MG CAPSULE PO SCH (08:32)
[2018-01-13] MEDS: CHOLECALCIFEROL 5,000 UNIT TABLET PO SCH (08:33)
[2018-01-13] MEDS: ENALAPRIL MALEATE 5 MG TABLET PO SCH (08:33)
[2018-01-13] MEDS: VITAMIN B COMP W-C 1 TAB TABLET PO SCH (08:33)
[2018-01-13] MEDS: ASCORBIC ACID 500 MG TABLET PO SCH (08:33)
[2018-01-13] MEDS: ASPIRIN 81 MG TAB.CHEW PO SCH (08:33)
[2018-01-13] MEDS ORDERED: predniSONE 10 MG TABLET PO SCH ×2 (09:00)
== END 2018-01-13 10:05 | disposition home health service (06) | DRG 189 ==
LOC: ER 22:50 → MS 01-09 02:50
PROVIDERS: ADMIT Nurse Practitioner; ATTEND Family Medicine
PROC: 0XHK33Z Insertion of Infusion Device into Left Hand, Percutaneous Approach (ICD-10-PCS; principal; 2018-01-09)
PROC: 4A033R1 Measurement of Arterial Saturation, Peripheral, Percutaneous Approach (ICD-10-PCS; 2018-01-09)
DX: J96.02 Acute respiratory failure with hypercapnia (principal); J15.9 Unspecified bacterial pneumonia; J44.0 Chronic obstructive pulmonary disease with (acute) lower respiratory infection; J44.1 Chronic obstructive pulmonary disease with (acute) exacerbation; F23 Brief psychotic disorder; N30.01 Acute cystitis with hematuria; F51.01 Primary insomnia; F41.9 Anxiety disorder, unspecified; D72.829 Elevated white blood cell count, unspecified; E11.9 Type 2 diabetes mellitus without complications; I10 Essential (primary) hypertension; Z79.52 Long term (current) use of systemic steroids

== ENCOUNTER 2018-10-18 10:02 | Inpatient (IN) | payer BC, MEDICAID, MEDICARE ==
--- NOTE | 2018-10-18 10:20 | ERNOTE ---
Dyspnea - General Presenting Symptoms: shortness of breath Time Seen by Provider: 10/18/18 10:12 Source: patient Exam Limitations: no limitations - Immun/Allergies/Home Medications Immunizations: IMMUNIZATION HX Immunizations Up to Date Yes History of Influenza Vaccine Yes Hx Pneumococcal Vaccination Yes Allergies/Adverse Reactions: Allergies azithromycin [From Zithromax] Adverse Reaction (Verified 10/18/18 10:18) Muscle Pain ciprofloxacin [From Cipro] Adverse Reaction (Verified 10/18/18 10:18) ciprofloxacin HCl [From Cipro] Adverse Reaction (Verified 10/18/18 10:18) levofloxacin [From Levaquin] Adverse Reaction (Verified 10/18/18 10:18) Muscle Pain Home Medications: HOME MEDICATIONS Aspirin 81 mg PO DAILY 05/26/16 [Last Taken Unknown] Atorvastatin Calcium 40 mg PO HS 05/26/16 [Last Taken Unknown] B-Complex with Vitamin C [Vitamin B-Complex & C] 1 each PO DAILY 05/26/16 [Last Taken Unknown] Cholecalciferol (Vitamin D3) [Vitamin D3] 5,000 unit PO DAILY 05/26/16 [Last Taken Unknown] Docusate Sodium [Stool Softener] 50 mg PO PRN PRN 05/26/16 [Last Taken Unknown] Enalapril Maleate [Vasotec] 2.5 mg PO DAILY 05/26/16 [Last Taken Unknown] Formoterol Fumarate [Perforomist] 1 vial IH BID 05/26/16 [Last Taken Unknown] Nitroglycerin 0.4 mg SL Q5MX3 PRN 05/26/16 [Last Taken Unknown] Polyethylene Glycol 3350 [Miralax] 17 gm PO PRN PRN 05/26/16 [Last Taken Unknown] Albuterol Sulfate [Ventolin HFA] 2 puff IH Q4H PRN 10/18/16 [Last Taken Unknown] Furosemide [Lasix] 40 mg PO DAILY 10/18/16 [Last Taken Unknown] Ipratropium [place] [Atrovent] 0.5 mg IH Q6H 10/18/16 [Last Taken Unknown] Ascorbic Acid [Vitamin C] 1,000 mg PO BID 01/09/18 [Last Taken Unknown] Albuterol Sulfate/Ipratropium [Duoneb 2.5-0.5MG/3ML Soln] 3 ml IH Q4HRT nebu 01/13/18 [Last Taken Unknown] prednisone 5 mg tablet 10 mg PO DAILY #60 tab 05/30/18 [Last Taken Unknown] albuterol sulfate HFA 90 mcg/actuation aerosol inhaler 2 puff IH Q4H PRN #8.5 g 07/04/18 [Last Taken Unknown] alprazolam 0.5 mg tablet 0.5 mg PO TID PRN #90 tab 08/08/18 [Last Taken Unknown] morphine 10 mg/5 mL oral solution 5 mg PO Q4H PRN #150 ml 08/30/18 [Last Taken Unknown] albuterol sulfate 2.5 mg/3 mL (0.083 %) solution for nebulization 2.5 mg IH QID #375 ml 09/03/18 [Last Taken Unknown] - History of Present Illness Narrative: Patient has a history of endstage COPD and is on 3liter home O2. She started to get more short of breath this morning, feels congested, yellow sputum, no fever Date (Duration): 10/18/18 Treatment GLOBAL ENGINEERING MANAGER: albuterol Initiating event: Reports: upper resp illness Frequency of episodes: Reports: occassional episodes Modifying Factors - (Improves): Reports: albuterol, rest Modifying Factors (Worsens): Reports: activity Associated Symptoms-Dyspnea: Reports: cough. Denies: fever/chills, chest pain/discomfort, palpitations Prior Treatment: Denies: recently seen, currently on antibiotics Review of Systems - Review of Systems Constitutional: Absent: fever, chills ENT: Present: nose congestion Respiratory: Present: shortness of breath, cough Cardiology: Absent: chest pain Gastrointestinal/Abdominal: Absent: nausea, abdominal pain Genitourinary: Present: no symptoms reported Skin: Absent: rash Neurological: Absent: headache Medical History (Last Updated 10/18/18 @ 11:59 by Danna Polo MD) COPD (chronic obstructive pulmonary disease) Chronic hypoxemic respiratory failure history of left shoulder surgery Surgical History: Surgical History (Last Reviewed 10/18/18 @ 10:18 by Bernarda Manuel RN) History of appendectomy History of cholecystectomy History of dilation and curettage multiple Family History: Family History (Last Reviewed 10/18/18 @ 10:18 by Bernarda Manuel RN) Father Heart disease Aunt Diabetes Uncle Diabetes Social History: Preferred Language Montserratian Do you have any latter-day or No cultural preference? Smoking Status Former smoker Have you smoked in the past 12 No months Do you dip or chew tobacco No Abuse History No History of abuse Psych History No pertinent hx Alcohol Use none Drug Use none No Social History Section defined Physical Exam - Physical Exam General Appearance: Present: wd/wn, alert, mild distress Ears, Nose, Throat: Present: normal except -, normal pharynx, dry mucous membranes Respiratory: Present: respiratory distress - mild , decreased breath sounds, expiration (prolonged) Cardiovascular/Chest: Present: regular rate, rhythm, no murmur Gastrointestinal/Abdominal: Present: normal bowel sounds, nontender Extremity Exam: Present: no edema Neurological Exam: Present: alert, oriented, normal mood/affect Skin Exam: Present: normal color, warm/dry ED Progress - Results and Orders Patient's Lab Results:: I have reviewed the patient's lab results. - Vital Signs Patient's Vital Signs:: I have reviewed the patient's vital signs. Vital Signs: Vital Signs 10/18/18 10:10 Temperature 36.8 C Pulse Rate 92 Respiratory Rate 22 H Blood Pressure 110/36 O2 Sat by Pulse Oximetry 98 - EKG EKG: NSR, nonspecific ST T wave changes EKG read: Interp. by me - X-Ray X-Ray #1 X-Ray: chest - stable COPD, no infiltrate Interpretation: Reviewed by me - Progress/Reassessment Chief Complaint: Dyspnea Progress Note-Subjective: 10/18/18 11:57 discussed lab result with patient recommended Bipap and admission as patient has elevated CO2, patient agreed 10/18/18 12:04 discussed with barbara Gtz to admit, hold off on antibiotic Departure Clinical Impression: COPD exacerbation Acute and chronic respiratory failure Qualifiers: Respiratory failure complication: hypercapnia Qualified Code(s): J96.22 - Acute and chronic respiratory failure with hypercapnia - Departure Disposition: Still a patient Condition: Stable
[2018-10-18 10:58] LABS: Hemoglobin 11.4 gm/dL (12.5-16.0); Mean Cell Volume 100.5 fl (78-100); Mean Corpuscular Hemoglobin 29.4 pg (27-31); Mean Corpuscular Hgb Conc 29.2 g/dl (32-36); Mean Platelet Volume 9.9 fl (8-12.5); Neutrophil # 13.5 K/mm3 (1.3-6.0); Platelet Count 283 K/mm3 (150-450); Red Blood Count 3.88 M/mm3 (4.2-5.4); Red Cell Distribution Width 13.6 % (11.5-14.0); White Blood Count 17.3 K/mm3 (4.0-10.5)
[2018-10-18] MEDS ORDERED: METHYLPREDNISOLONE SOD SUCC/PF 40 MG/ML VIAL IV ONE (11:04)
[2018-10-18 11:22] LABS: Troponin I Less than 0.017 ng/mL (0.00-0.10)
[2018-10-18 11:24] LABS: Alkaline Phosphatase * 76 U/L (50-170); Anion Gap 6.8 mmol/L (6.8-13.8); BNP * 339 pg/mL (5-550); BUN/Creatinine Ratio 15.2 (9.0-21.6); Bilirubin, Total 0.4 mg/dL (0.0-1.1); Blood Urea Nitrogen 10 mg/dL (3-23); Calcium * 8.5 mg/dL (7.9-10.9); Carbon Dioxide 34.6 mmol/L (24-32.6); Chloride 97 mmol/L (97-106); Glucose * 127 mg/dL (70-110); Potassium 4.4 mmol/L (3.4-4.6); Sodium 134 mmol/L (132-142); Total Protein 6.2 gm/dL (6.2-8.2)
--- NOTE | 2018-10-18 11:33 | ANES ---
Anesthesia Procedure Note Procedure Note: ANESTHESIA PROCEDURE NOTE Date of procedure:[]. 10/18/2018 Time of procedure:[]. 1120 Performed by: Johnson Mora CRNA Substance Abuse Specialist: [] None . Preprocedure diagnosis: []. Shortness of breath. Difficult IV access. Post procedure diagnosis: Same. Procedure:[] IV start Indications: []. Difficult IV access Findings: [] 22-gauge Angiocath IV started in patient's right wrist. EBL: Minimal. Fluids: N/A. Specimen: N/A. Post procedure condition: The patient tolerated the procedure well. No complications were noted. Thank you for this consultation Johnson Mora CRNA
[2018-10-18 11:57] LABS: ALT 33 U/L (19-67); AST 29 U/L (0-48); Albumin * 2.2 gm/dl (3.4-5.0); Ca. Corrected For Albumin 9.6 mg/dL (8.4-10.2)
[2018-10-18] MEDS: ALBUTEROL SULFATE/IPRATROPIUM 3 ML NEBU IH SCH ×3 (15:00→22:09)
[2018-10-18] MEDS: NORMAL SALINE 1,000 ML IV PRN ×2 (15:00→23:49)
[2018-10-18] MEDS: ALPRAZolam 0.5 MG TABLET PO PRN (23:37)
[2018-10-18] MEDS: MORPHINE SULFATE 10 MG/0.5 ML SYRINGE PO PRN (23:38)
[2018-10-19] MEDS: ALBUTEROL SULFATE/IPRATROPIUM 3 ML NEBU IH SCH ×6 (02:44→22:03)
[2018-10-19] MEDS: MORPHINE SULFATE 10 MG/0.5 ML SYRINGE PO PRN ×2 (07:24→14:06)
[2018-10-19] MEDS ORDERED: POLYETHYLENE GLYCOL 3350 119 GM BTL PO PRN (07:26)
[2018-10-19] MEDS ORDERED: MORPHINE SULFATE PO PRN (07:26)
[2018-10-19] MEDS ORDERED: [UNRECOGNIZED DRUG - OTHER] PO PRN (07:26)
[2018-10-19] MEDS ORDERED: ALPRAZolam 0.5 MG TABLET PO PRN (07:26)
[2018-10-19] MEDS ORDERED: NITROGLYCERIN 0.4 MG/TAB BTL SL PRN (07:26)
[2018-10-19] MEDS ORDERED: DOCUSATE SODIUM 100 MG CAPSULE PO PRN (07:26)
[2018-10-19] MEDS ORDERED: LORATADINE 10 MG TABLET PO PRN (07:26)
--- NOTE | 2018-10-19 07:26 | HP ---
Chief Complaint - Chief Complaint Date of Service: 10/18/18 Time of Service: 16:45 Chief Complaint: difficulty breathing History of Present Illness: 82 yo WF with PMH significant for End stage COPD (Rx'd trilogy at home but not using x 1 month), chronic respiratory failure had seen smoke and flame specialist a couple weeks ago with no change in Tx except recommend she use her trilogy, which she did not use. Since then she has been having worsening SOB, SAMUEL but no F/C's or CP. she states she continued with all her other treatments - nebs, chronic prednisone and inhaled steroids and morphine. She reached a point where she was working hard to breath so came to the [facility] ER where she was found to be in distress and hypercapnic to 90. She was admitted for COPD exacerbation with severe hypercapnea, starting her on IV steroids and placed on BIPAP. When I saw her she was fatigued, could only say a few words without taking a breath and was on the BIPAP. Medical History (Last Reviewed 10/18/18 @ 12:59 by Philippe Marie RN) COPD (chronic obstructive pulmonary disease) Chronic hypoxemic respiratory failure history of left shoulder surgery Surgical History: Surgical History (Last Reviewed 10/18/18 @ 13:00 by Philippe Marie RN) History of appendectomy History of cholecystectomy History of dilation and curettage multiple Family History: Family History (Last Reviewed 10/18/18 @ 13:00 by Philippe Marie RN) Father Heart disease Aunt Diabetes Uncle Diabetes Social History: Patient Lives/Resources Family Utilized Preferred Language Vincentian Do you have any shinto or No cultural preference? Smoking Status Former smoker Have you smoked in the past 12 No months Do you dip or chew tobacco No Abuse History No History of abuse Psych History No pertinent hx Alcohol Use none Drug Use none No Social History Section defined Review Of Systems (GEN) - Review of Systems Generalized/Overall Review: Present: Weakness, Malaise, Fatigue. Absent: Chills, Fever EENTM: Present: Blurred Vision Respiratory: Present: Cough, Shortness of Breath. Absent: Orthopnea Cardiac: Absent: Chest Pain, Edema Abdominal: Present: No Symptoms Reported Genitourinary: Present: No Symptoms Reported Musculoskeletal: Present: No Symptoms Reported Neurological: Present: Weakness Skin: Present: No Symptoms Reported Endocrine: Present: No Symptoms Reported Immunizations: IMMUNIZATION HX Immunizations Up to Date Yes History of Influenza Vaccine Yes Hx Pneumococcal Vaccination Yes Allergies/Adverse Reactions: Allergies Allergy/AdvReac Type Severity Reaction Status Date / Time azithromycin [From Zithromax] AdvReac Muscle Pain Verified 10/18/18 10:18 ciprofloxacin [From Cipro] AdvReac Verified 10/18/18 10:18 ciprofloxacin HCl AdvReac Verified 10/18/18 10:18 [From Cipro] levofloxacin [From Levaquin] AdvReac Muscle Pain Verified 10/18/18 10:18 Home Medications: HOME MEDICATIONS Aspirin 81 mg PO DAILY 05/26/16 [Last Taken 10/17/18 09:00] Atorvastatin Calcium 40 mg PO HS 05/26/16 [Last Taken 10/17/18 21:00] B-Complex with Vitamin C [Vitamin B-Complex & C] 1 each PO DAILY 05/26/16 [Last Taken 10/17/18 09:00] Cholecalciferol (Vitamin D3) [Vitamin D3] 5,000 unit PO DAILY 05/26/16 [Last Taken 10/17/18 09:00] Docusate Sodium [Stool Softener] 50 mg PO PRN PRN 05/26/16 [Last Taken Unknown] Enalapril Maleate [Vasotec] 2.5 mg PO DAILY 05/26/16 [Last Taken 10/17/18 21:00] Formoterol Fumarate [Perforomist] 1 vial IH BID 05/26/16 [Last Taken 10/17/18 20:00] Nitroglycerin 0.4 mg SL Q5MX3 PRN 05/26/16 [Last Taken Unknown] Polyethylene Glycol 3350 [Miralax] 17 gm PO PRN PRN 05/26/16 [Last Taken Unknown] Albuterol Sulfate [Ventolin HFA] 2 puff IH Q4H PRN 10/18/16 [Last Taken Unknown] Ipratropium [place] [Atrovent] 0.5 mg IH Q6H 10/18/16 [Last Taken 10/17/18 23:00] Ascorbic Acid [Vitamin C] 1,000 mg PO BID 01/09/18 [Last Taken 10/17/18 09:00] Albuterol Sulfate/Ipratropium [Duoneb 2.5-0.5MG/3ML Soln] 3 ml IH Q4HRT nebu 01/13/18 [Last Taken Unknown] prednisone 5 mg tablet 10 mg PO DAILY #60 tab 05/30/18 [Last Taken 10/17/18 09:00] albuterol sulfate HFA 90 mcg/actuation aerosol inhaler 2 puff IH Q4H PRN #8.5 g 07/04/18 [Last Taken Unknown] alprazolam 0.5 mg tablet 0.5 mg PO TID PRN #90 tab 08/08/18 [Last Taken 10/17/18 21:00] morphine 10 mg/5 mL oral solution 5 mg PO Q4H PRN #150 ml 08/30/18 [Last Taken Unknown] albuterol sulfate 2.5 mg/3 mL (0.083 %) solution for nebulization 2.5 mg IH QID #375 ml 09/03/18 [Last Taken 10/17/18 23:00] Cetirizine HCl [Allergy Relief] 10 mg PO DAILY PRN 10/18/18 [Last Taken 10/17/18 09:00] Exam - Exam Vital Signs: Vital Signs - Last Taken Temp 36.3 C 10/19/18 06:43 Pulse 92 10/19/18 06:43 Resp 18 10/19/18 06:43 BP 145/80 10/19/18 06:43 Pulse Ox 100 10/19/18 06:43 Constitutional: Present: Alert, Oriented x3, Moderate distress, Elderly ENT Exam: Present: hearing grossly normal Eye Exam: bilateral eye: normal inspection, PERRL, EOMI, other - cataracts arben Neck: Present: supple Respiratory: Present: accessory muscle use, wheezing, expiration (prolonged), other - poor AE arben. Cardiovascular/Chest: Present: regular rate, rhythm, no murmur Peripheral Pulses: dorsalis-pedis (R): 2+, dorsalis-pedis (L): 2+ Abdomen: Present: Normal bowel sounds, soft, nontender, distended /Rectal: Present: Exam deferred Extremity: Present: no calf tenderness Skin Exam: Present: normal color Neurologic: Present: tufting supervisor II-XII nml as tested, oriented x 3, depressed affect Appearance: Present: appropriate appearance, appropriate insight, neat Eye contact: Present: cooperative, good eye contact Thoughts: Present: normal thought pattern, no apparent hallucination Diagnostic Studies: Abnormal Lab Results 10/18/18 10/18/18 10/18/18 Range/Units 10:18 10:55 10:55 WBC 17.3 H (4.0-10.5) K/mm3 RBC 3.88 L (4.2-5.4) M/mm3 Hgb 11.4 L (12.5-16.0) gm/dL MCV 100.5 H (78-100) fl MCHC 29.2 L (32-36) g/dl Immature Gran % (Auto) 0.60 H (0.001-0.429) % Immature Gran # (Auto) 0.11 H (0.000-0.0310) K/mm3 Neutrophils % 78.0 H (42-75.0) % Lymphocytes % 12.0 L (20-51) % Neutrophils # 13.5 H (1.3-6.0) K/mm3 Monocytes # 1.5 H (0.0-1.0) k/mm3 pCO2 (32.0-45.0) mmHg pO2 (83.0-108.0) mmHg HCO3 (21.0-28.0) mmol/L Total CO2 (19.0-24.0) mmol/L Base Excess (-2.0-3.0) mmol/L ABG pH (7.35-7.45) Carbon Dioxide 34.6 H (24-32.6) mmol/L Random Glucose 127 H (70-110) mg/dL Lactic Acid, Venous 0.3 L (0.4-2.0) mmol/L Albumin 2.2 L (3.4-5.0) gm/dl 10/18/18 10/18/18 Range/Units 11:43 13:35 WBC (4.0-10.5) K/mm3 RBC (4.2-5.4) M/mm3 Hgb (12.5-16.0) gm/dL MCV (78-100) fl MCHC (32-36) g/dl Immature Gran % (Auto) (0.001-0.429) % Immature Gran # (Auto) (0.000-0.0310) K/mm3 Neutrophils % (42-75.0) % Lymphocytes % (20-51) % Neutrophils # (1.3-6.0) K/mm3 Monocytes # (0.0-1.0) k/mm3 pCO2 93.4 H* 80.4 H* (32.0-45.0) mmHg pO2 124.7 H (83.0-108.0) mmHg HCO3 40.7 H 38.1 H (21.0-28.0) mmol/L Total CO2 43.6 H 40.6 H (19.0-24.0) mmol/L Base Excess 10.5 H 8.9 H (-2.0-3.0) mmol/L ABG pH 7.26 L 7.29 L (7.35-7.45) Carbon Dioxide (24-32.6) mmol/L Random Glucose (70-110) mg/dL Lactic Acid, Venous (0.4-2.0) mmol/L Albumin (3.4-5.0) gm/dl Microbiology 10/18/18 11:55 Sputum Culture - Preliminary Expectorate Sputum Laboratory Results WBC 17.3 K/mm3 (4.0-10.5) H 10/18/18 10:18 RBC 3.88 M/mm3 (4.2-5.4) L 10/18/18 10:18 Hgb 11.4 gm/dL (12.5-16.0) L 10/18/18 10:18 Hct 39.0 % (37.0-47.0) 10/18/18 10:18 MCV 100.5 fl (78-100) H 10/18/18 10:18 MCH 29.4 pg (27-31) 10/18/18 10:18 MCHC 29.2 g/dl (32-36) L 10/18/18 10:18 RDW 13.6 % (11.5-14.0) 10/18/18 10:18 Plt Count 283 K/mm3 (150-450) 10/18/18 10:18 MPV 9.9 fl (8-12.5) 10/18/18 10:18 Immature Gran % (Auto) 0.60 % (0.001-0.429) H 10/18/18 10:18 Immature Gran # (Auto) 0.11 K/mm3 (0.000-0.0310) H 10/18/18 10:18 Neutrophils % 78.0 % (42-75.0) H 10/18/18 10:18 Lymphocytes % 12.0 % (20-51) L 10/18/18 10:18 Monocytes % 8.6 % (0.0-9) 10/18/18 10:18 Eosinophils % 0.6 % (0.0-3.0) 10/18/18 10:18 Basophils % 0.2 % (0.0-1.0) 10/18/18 10:18 Nucleated RBC % 0.0 k/mm3 (0-1) 10/18/18 10:18 Neutrophils # 13.5 K/mm3 (1.3-6.0) H 10/18/18 10:18 Lymphocytes # 2.08 k/mm3 (1.5-3.5) 10/18/18 10:18 Monocytes # 1.5 k/mm3 (0.0-1.0) H 10/18/18 10:18 Eosinophils # 0.1 k/mm3 (0.0-0.7) 10/18/18 10:18 Absolute Basophils 0.0 k/mm3 (0.0-0.1) 10/18/18 10:18 pCO2 80.4 mmHg (32.0-45.0) H* 10/18/18 13:35 pO2 124.7 mmHg (83.0-108.0) H 10/18/18 13:35 HCO3 38.1 mmol/L (21.0-28.0) H 10/18/18 13:35 Total CO2 40.6 mmol/L (19.0-24.0) H 10/18/18 13:35 Base Excess 8.9 mmol/L (-2.0-3.0) H 10/18/18 13:35 ABG pH 7.29 (7.35-7.45) L 10/18/18 13:35 ABG O2 Sat (Measured) 97.9 % (94.0-98.0) 10/18/18 13:35 Sodium 134 mmol/L (132-142) 10/18/18 10:55 Plasma Sodium 134 mmol/L (130-142) 10/18/18 10:55 Potassium 4.4 mmol/L (3.4-4.6) 10/18/18 10:55 Chloride 97 mmol/L (97-106) 10/18/18 10:55 Carbon Dioxide 34.6 mmol/L (24-32.6) H 10/18/18 10:55 Anion Gap 6.8 mmol/L (6.8-13.8) 10/18/18 10:55 BUN 10 mg/dL (3-23) D 10/18/18 10:55 Creatinine 0.66 mg/dL (0.4-1.4) 10/18/18 10:55 Est GFR (Non-Af Amer) 92 mL/min (60-130) D 10/18/18 10:55 BUN/Creatinine Ratio 15.2 (9.0-21.6) 10/18/18 10:55 Random Glucose 127 mg/dL (70-110) H 10/18/18 10:55 Lactic Acid, Venous 0.3 mmol/L (0.4-2.0) L 10/18/18 10:55 Calcium 8.5 mg/dL (7.9-10.9) 10/18/18 10:55 Calcium Adj for Albumin 9.6 mg/dL (8.4-10.2) 10/18/18 10:55 Total Bilirubin 0.4 mg/dL (0.0-1.1) 10/18/18 10:55 AST 29 U/L (0-48) 10/18/18 10:55 ALT 33 U/L (19-67) 10/18/18 10:55 Alkaline Phosphatase 76 U/L (50-170) 10/18/18 10:55 Troponin I Less than 0.017 ng/mL (0.00-0.10) 10/18/18 10:55 B-Natriuretic Peptide 339 pg/mL (5-550) 10/18/18 10:55 Total Protein 6.2 gm/dL (6.2-8.2) 10/18/18 10:55 Albumin 2.2 gm/dl (3.4-5.0) L 10/18/18 10:55 Assessment/Plan - Assessment/Plan (1) Hypercapnemia Assessment: continue BIPAP with goal of getting to and maintaining CO2 < 60, preferrably < 50. Problem: Acute (2) COPD exacerbation Assessment: will just do nebs and IV steroids for now. sputum and CXR is not showing concerns for underlying infection and she is allergic to most abx. Problem: Acute (3) Chronic respiratory failure Assessment: continue O2, but try to maintain sats in the low to mid 90's. Problem: Chronic Qualifiers: Respiratory failure complication: hypoxia Qualified Code(s): J96.11 - Chronic respiratory failure with hypoxia (4) Diabetes Assessment: typically diet controlled. will do SSI and glucose monitoring to be sure sugars remain ok on IV steroids. Problem: Chronic Qualifiers: Diabetes mellitus type: type 2 Diabetes mellitus care home insulin use: without care home use Diabetes mellitus complication status: without complication Qualified Code(s): E11.9 - Type 2 diabetes mellitus without complications (5) Hyperlipidemia Problem: Chronic Qualifiers: Hyperlipidemia type: pure hypercholesterolemia Qualified Code(s): E78.00 - Pure hypercholesterolemia, unspecified; E78.0 - Pure hypercholesterolemia (6) Hypertension Assessment: stable, follow for now. Problem: Chronic Qualifiers: Hypertension type: essential hypertension Qualified Code(s): I10 - Essential (primary) hypertension (7) Pulmonary hypertension Assessment: continue morphine Problem: Chronic (8) Discharge planning issues Assessment: can discharge home when reduced CO2 and patient closer to her home baseline. Anticipate it will be Sunday before we're able to achieve this at the earliest. Problem: Acute
[2018-10-19] MEDS: NORMAL SALINE 1,000 ML IV PRN ×2 (08:41→17:01)
[2018-10-19] MEDS: predniSONE 10 MG TABLET PO SCH (08:43)
--- NOTE | 2018-10-19 08:45 | PN ---
Subjective - Date and Time Seen Date: 10/19/18 Time: 08:38 Subjective Narrative: still complaint of SOB, but doesn't like wearing the BIPAP. She's been off it most of the night and admits to not wearing it at home. Objective - Review of Systems Generalized/Overall Review: Reports: Weakness, Malaise, Fatigue. Denies: Chills, Fever EENTM: Reports: Blurred Vision Respiratory: Reports: Cough, Shortness of Breath Cardiac: Denies: Chest Pain, Edema Abdominal: Reports: No Symptoms Reported Genitourinary Symptoms: Reports: No Symptoms Reported Musculoskeletal Complaints: Reports: No Symptoms Reported Neurological: Reports: Weakness Skin: Reports: No Symptoms Reported Endocrine: Reports: No Symptoms Reported - Vitals Vitals: Last Vital Signs Temp 36.3 C 10/19/18 06:43 Pulse 92 10/19/18 06:43 Resp 18 10/19/18 06:43 BP 145/80 10/19/18 06:43 Pulse Ox 100 10/19/18 06:43 - Abnormal Lab Findings Abnormal Lab Findings: Abnormal Lab Results 10/18/18 10/18/18 10/18/18 Range/Units 10:18 10:55 10:55 WBC 17.3 H (4.0-10.5) K/mm3 RBC 3.88 L (4.2-5.4) M/mm3 Hgb 11.4 L (12.5-16.0) gm/dL MCV 100.5 H (78-100) fl MCHC 29.2 L (32-36) g/dl Immature Gran % (Auto) 0.60 H (0.001-0.429) % Immature Gran # (Auto) 0.11 H (0.000-0.0310) K/mm3 Neutrophils % 78.0 H (42-75.0) % Lymphocytes % 12.0 L (20-51) % Neutrophils # 13.5 H (1.3-6.0) K/mm3 Monocytes # 1.5 H (0.0-1.0) k/mm3 pCO2 (32.0-45.0) mmHg pO2 (83.0-108.0) mmHg HCO3 (21.0-28.0) mmol/L Total CO2 (19.0-24.0) mmol/L Base Excess (-2.0-3.0) mmol/L ABG pH (7.35-7.45) Carbon Dioxide 34.6 H (24-32.6) mmol/L Random Glucose 127 H (70-110) mg/dL Lactic Acid, Venous 0.3 L (0.4-2.0) mmol/L Albumin 2.2 L (3.4-5.0) gm/dl 10/18/18 10/18/18 10/19/18 Range/Units 11:43 13:35 07:30 WBC (4.0-10.5) K/mm3 RBC (4.2-5.4) M/mm3 Hgb (12.5-16.0) gm/dL MCV (78-100) fl MCHC (32-36) g/dl Immature Gran % (Auto) (0.001-0.429) % Immature Gran # (Auto) (0.000-0.0310) K/mm3 Neutrophils % (42-75.0) % Lymphocytes % (20-51) % Neutrophils # (1.3-6.0) K/mm3 Monocytes # (0.0-1.0) k/mm3 pCO2 93.4 H* 80.4 H* 82.6 H* (32.0-45.0) mmHg pO2 124.7 H (83.0-108.0) mmHg HCO3 40.7 H 38.1 H 38.1 H (21.0-28.0) mmol/L Total CO2 43.6 H 40.6 H 40.7 H (19.0-24.0) mmol/L Base Excess 10.5 H 8.9 H 8.9 H (-2.0-3.0) mmol/L ABG pH 7.26 L 7.29 L 7.28 L (7.35-7.45) Carbon Dioxide (24-32.6) mmol/L Random Glucose (70-110) mg/dL Lactic Acid, Venous (0.4-2.0) mmol/L Albumin (3.4-5.0) gm/dl - Exam Constitutional: Present: Alert, Oriented x3, Moderate distress ENT Exam: Present: hearing grossly normal Neck: Present: supple Respiratory: Present: respiratory distress, accessory muscle use, wheezing, expiration (prolonged), other - poor AE arben Cardiovascular/Chest: Present: regular rate, rhythm. Absent: edema Abdomen: Present: Normal bowel sounds, soft, nontender, distended Extremity: Present: other - SCD's arben le. Absent: lower extremity edema Skin Exam: Present: normal color Neurologic: Present: oriented x 3, depressed affect Appearance: Present: appropriate appearance, appropriate insight, neat Eye contact: Present: cooperative, good eye contact, normal speech Thoughts: Present: normal thought pattern, no apparent hallucination Assessment/Plan - Problems/Diagnosis (1) Hypercapnemia Problem: Acute Narrative: only slightly improved. will continue to tx COPD exacerbation and encourage use of the BIPAP. May need to consider hospice. (2) COPD exacerbation Problem: Acute Narrative: continue steroids, nebs. will hold off on abx for now. (3) Chronic respiratory failure Problem: Chronic Qualifiers: Respiratory failure complication: hypoxia Qualified Code(s): J96.11 - Chronic respiratory failure with hypoxia Narrative: work to keep sats around 95%, but continue O2 for now as well as her morphine. (4) Diabetes Problem: Chronic Qualifiers: Diabetes mellitus type: type 2 Diabetes mellitus chcf insulin use: without chcf use Diabetes mellitus complication status: without complication Qualified Code(s): E11.9 - Type 2 diabetes mellitus without complications Narrative: usually diet controlled. will do glucose checks to see if steroids creating issues. (5) Hyperlipidemia Problem: Chronic Qualifiers: Hyperlipidemia type: pure hypercholesterolemia Qualified Code(s): E78.00 - Pure hypercholesterolemia, unspecified; E78.0 - Pure hypercholesterolemia Narrative: no acute changes needed. (6) Hypertension Problem: Chronic Qualifiers: Hypertension type: essential hypertension Qualified Code(s): I10 - Essential (primary) hypertension Narrative: BP's slightly high most likely due to stress. will follow for now keeping enalapril unchanged. (7) Pulmonary hypertension Problem: Chronic Narrative: consider sildenafil. no other changes at this time. continue morphine. (8) Discharge planning issues Problem: Acute Narrative: will most likely be here until Sunday. will continue to work on BIPAP and then getting her a new mask at home so she can go back to using her trilogy at home.
[2018-10-19] MEDS: METHYLPREDNISOLONE SOD SUCC/PF 40 MG/ML VIAL IV SCH ×2 (08:46→21:20)
[2018-10-19] MEDS: ALPRAZolam 0.5 MG TABLET PO PRN ×2 (08:53→14:05)
[2018-10-19] MEDS: FORMOTEROL FUMARATE 20 MCG/2 ML VIAL IH SCH ×2 (09:28→18:05)
[2018-10-19] MEDS: ENALAPRIL MALEATE 5 MG TABLET PO SCH (10:38)
[2018-10-19] MEDS: INSULIN REGULAR, HUMAN 100 UNITS/ML VIAL SC SCH ×3 (12:22→21:24)
[2018-10-19] MEDS: ROSUVASTATIN CALCIUM 20 MG TABLET PO SCH (21:22)
[2018-10-20] MEDS: NORMAL SALINE 1,000 ML IV PRN ×3 (01:17→18:59)
[2018-10-20] MEDS: ALPRAZolam 0.5 MG TABLET PO PRN ×3 (01:32→20:32)
[2018-10-20] MEDS: MORPHINE SULFATE 10 MG/0.5 ML SYRINGE PO PRN ×3 (01:33→18:13)
[2018-10-20] MEDS: ALBUTEROL SULFATE/IPRATROPIUM 3 ML NEBU IH SCH ×6 (02:11→22:07)
[2018-10-20] MEDS: FORMOTEROL FUMARATE 20 MCG/2 ML VIAL IH SCH ×2 (06:07→18:21)
[2018-10-20] MEDS: INSULIN REGULAR, HUMAN 100 UNITS/ML VIAL SC SCH ×4 (06:56→20:30)
--- NOTE | 2018-10-20 08:08 | PN ---
Subjective - Date and Time Seen Date: 10/20/18 Time: 08:05 Subjective Narrative: Feels more SOB this am. Did wear BIPAP 8 hrs during day and 5 hrs hs. CO2 at 96 this am. It was reported that patient had gained 3kg of weight overnight, but her input doesn't support this and he PE shows less edema. Objective - Review of Systems Generalized/Overall Review: Reports: Weakness, Malaise, Fatigue. Denies: Chills, Fever EENTM: Reports: No Symptoms Reported Respiratory: Reports: Shortness of Breath, Wheezing Cardiac: Denies: Chest Pain, Palpitations Abdominal: Reports: No Symptoms Reported Genitourinary Symptoms: Reports: No Symptoms Reported Musculoskeletal Complaints: Reports: No Symptoms Reported Neurological: Reports: Weakness Skin: Reports: No Symptoms Reported Endocrine: Reports: No Symptoms Reported - Vitals Vitals: Last Vital Signs Temp 36.7 C 10/20/18 02:00 Pulse 97 10/20/18 06:35 Resp 20 10/20/18 06:35 BP 161/75 H 10/20/18 06:35 Pulse Ox 99 10/20/18 06:35 - Abnormal Lab Findings Abnormal Lab Findings: Abnormal Lab Results 10/19/18 Range/Units 07:30 pCO2 82.6 H* (32.0-45.0) mmHg HCO3 38.1 H (21.0-28.0) mmol/L Total CO2 40.7 H (19.0-24.0) mmol/L Base Excess 8.9 H (-2.0-3.0) mmol/L ABG pH 7.28 L (7.35-7.45) - Exam Constitutional: Present: Alert, Oriented x3, Moderate distress, Lethargic, Elderly ENT Exam: Present: hearing grossly normal Neck: Present: supple Respiratory: Present: accessory muscle use, wheezing, expiration (prolonged), other - Poor AE arben Cardiovascular/Chest: Present: regular rate, rhythm, systolic murmur Abdomen: Present: Normal bowel sounds, soft, nontender, distended Extremity: Present: no pedal edema. Absent: calf tenderness Skin Exam: Present: warm/dry Neurologic: Present: oriented x 3, depressed affect Appearance: Present: appropriate appearance Eye contact: Present: cooperative Thoughts: Present: normal thought pattern Assessment/Plan - Problems/Diagnosis (1) Hypercapnemia Problem: Acute Narrative: worsening. will increase settings to 20/5 to see if this helps and also encourage constant wearing of the BIPAP. will d/w her hospice later today. (2) COPD exacerbation Problem: Acute Narrative: her WOB seems to have worsened. She is on the verge of needing intubation, but will try BIPAP with setting change. Will discuss possible hospice with her. (3) Chronic respiratory failure Problem: Chronic Qualifiers: Respiratory failure complication: hypoxia Qualified Code(s): J96.11 - Chronic respiratory failure with hypoxia Narrative: continue O2 but work to keep her in the low 90's O2 sats. (4) Diabetes Problem: Chronic Qualifiers: Diabetes mellitus type: type 2 Diabetes mellitus alf insulin use: without alf use Diabetes mellitus complication status: without complication Qualified Code(s): E11.9 - Type 2 diabetes mellitus without complications Narrative: sugars have been ok, no changes. (5) Hyperlipidemia Problem: Chronic Qualifiers: Hyperlipidemia type: pure hypercholesterolemia Qualified Code(s): E78.00 - Pure hypercholesterolemia, unspecified; E78.0 - Pure hypercholesterolemia (6) Hypertension Problem: Chronic Qualifiers: Hypertension type: essential hypertension Qualified Code(s): I10 - Essential (primary) hypertension Narrative: BP's increasing, most likely from stress on her body. consider sildenafil for this and pulmonary HTN. (7) Pulmonary hypertension Problem: Chronic (8) Discharge planning issues Problem: Acute Narrative: Hopefully can look at discharge in the am, though this may only be possible if her Trilogy is set at home for use or she goes on hospice or the sildenafil helps.
[2018-10-20] MEDS: predniSONE 10 MG TABLET PO SCH (08:31)
[2018-10-20] MEDS: ENALAPRIL MALEATE 5 MG TABLET PO SCH (08:31)
[2018-10-20] MEDS: METHYLPREDNISOLONE SOD SUCC/PF 40 MG/ML VIAL IV SCH ×2 (08:33→20:02)
[2018-10-20] MEDS: SILDENAFIL CITRATE 20 MG TABLET PO SCH ×2 (09:00→17:56)
[2018-10-20] MEDS: ROSUVASTATIN CALCIUM 20 MG TABLET PO SCH (20:32)
[2018-10-21] MEDS: MORPHINE SULFATE 10 MG/0.5 ML SYRINGE PO PRN ×4 (00:57→23:02)
[2018-10-21] MEDS: SILDENAFIL CITRATE 20 MG TABLET PO SCH ×3 (00:59→17:57)
[2018-10-21] MEDS: ALBUTEROL SULFATE/IPRATROPIUM 3 ML NEBU IH SCH ×6 (01:59→22:08)
[2018-10-21] MEDS: NORMAL SALINE 1,000 ML IV PRN ×2 (03:20→11:19)
[2018-10-21] MEDS: FORMOTEROL FUMARATE 20 MCG/2 ML VIAL IH SCH ×2 (06:19→18:11)
[2018-10-21] MEDS: INSULIN REGULAR, HUMAN 100 UNITS/ML VIAL SC SCH ×4 (06:39→20:51)
--- NOTE | 2018-10-21 06:50 | PN ---
Progess Note - Interim Date: 10/21/18 Time: 06:48 Narrative: 10/21/18 06:48 Pt. feeling and looking better this am. CO2 < 70. Does have trilogy with AVAPS settings and similar mask at home. A/P: Hypercapnea - doing better. can d/c home if she will wear AVAPS at home.
[2018-10-21] MEDS: METHYLPREDNISOLONE SOD SUCC/PF 40 MG/ML VIAL IV SCH (07:46)
[2018-10-21] MEDS: predniSONE 10 MG TABLET PO SCH (08:00)
[2018-10-21] MEDS: NYSTATIN 60 ML BTL PO SCH ×4 (08:00→20:51)
[2018-10-21] MEDS: ENALAPRIL MALEATE 5 MG TABLET PO SCH (08:01)
--- NOTE | 2018-10-21 18:20 | PN ---
Subjective - Date and Time Seen Date: 10/21/18 Time: 17:58 Subjective Narrative: Pt. not wanting to wear her BIPAP. She is acting confused and asking for her family and not sure why they're not there. In discussing with her NH placement and Hospice referral, she acts like she doesn't fully understand and wishes to d/w family. I spoke with her daughter who states her father Alberto is not able to make decisions and there is no official POA. She states there is no way she or her dad could take care of Ingris at home and they have been having difficulty getting Ingris to use her Trilogy at home. Objective - Review of Systems Generalized/Overall Review: Reports: Weakness, Chills, Malaise, Fatigue. Denies: Fever EENTM: Reports: No Symptoms Reported Respiratory: Reports: Shortness of Breath, Wheezing Cardiac: Reports: No Symptoms Reported Abdominal: Reports: Nausea, Abdominal Pain. Denies: Vomiting Genitourinary Symptoms: Reports: No Symptoms Reported Musculoskeletal Complaints: Reports: No Symptoms Reported Neurological: Reports: Weakness Skin: Reports: Dryness Endocrine: Reports: No Symptoms Reported - Vitals Vitals: Last Vital Signs Temp 36.3 C 10/21/18 15:00 Pulse 80 10/21/18 15:10 Resp 25 H 10/21/18 15:10 BP 180/141 H 10/21/18 15:00 Pulse Ox 90 L 10/21/18 15:00 - Abnormal Lab Findings Abnormal Lab Findings: Abnormal Lab Results 10/20/18 10/21/18 10/21/18 Range/Units 17:55 05:47 12:39 pCO2 74.6 H* 69.9 H 73.9 H* (32.0-45.0) mmHg pO2 130.5 H (83.0-108.0) mmHg HCO3 36.1 H 32.3 H 34.7 H (21.0-28.0) mmol/L Total CO2 38.4 H 34.4 H 37.0 H (19.0-24.0) mmol/L Base Excess 7.6 H 4.1 H 6.2 H (-2.0-3.0) mmol/L ABG pH 7.30 L 7.28 L 7.29 L (7.35-7.45) ABG O2 Sat (Measured) 98.1 H (94.0-98.0) % - Exam Constitutional: Present: Alert, Moderate distress, Lethargic, Elderly ENT Exam: Present: hearing grossly normal Neck: Present: supple Respiratory: Present: respiratory distress, accessory muscle use, expiration (prolonged), other - poor AE arben Cardiovascular/Chest: Present: regular rate, rhythm, no murmur Abdomen: Present: soft, nontender, distended Extremity: Present: non-tender, lower extremity edema - mild, pedal edema Skin Exam: Present: warm/dry, other - fragile Neurologic: Present: alert. Absent: oriented x 3 Appearance: Present: impaired insight Eye contact: Present: avoids eye contact Assessment/Plan - Problems/Diagnosis (1) Hypercapnemia Problem: Acute Narrative: improved by still remains critical levels. Feel she will continue to decline and is on a downward trend with expected life of weeks if not a few months but definitely < 6months, depending on compliance with AVAPS trilogy use. She has stated she wants to be a full code, but this is not congruent with her non- compliance and I therefore feel that Hospice and being a DNR is the only appropriate course of action. Family is agreeable and demanding NH placement as they cannot take care of Ingris at home. Will look at placement tomorrow. (2) COPD exacerbation Problem: Acute Narrative: start steroid taper tomorrow. Sx are only slightly improved. (3) Chronic respiratory failure Problem: Chronic Qualifiers: Respiratory failure complication: hypoxia Qualified Code(s): J96.11 - Chronic respiratory failure with hypoxia Narrative: continue O2 but keep sats in the 85-93% range. (4) Diabetes Problem: Chronic Qualifiers: Diabetes mellitus type: type 2 Diabetes mellitus alf insulin use: without alf use Diabetes mellitus complication status: without complication Qualified Code(s): E11.9 - Type 2 diabetes mellitus without complications Narrative: sugars are ok. no further tx needed at this time. (5) Hyperlipidemia Problem: Chronic Qualifiers: Hyperlipidemia type: pure hypercholesterolemia Qualified Code(s): E78.00 - Pure hypercholesterolemia, unspecified; E78.0 - Pure hypercholesterolemia (6) Hypertension Problem: Chronic Qualifiers: Hypertension type: essential hypertension Qualified Code(s): I10 - Essential (primary) hypertension Narrative: BP's elevated. will stop steroids for now. begin prednisone taper tomorrow. consider increasing enalapril. (7) Pulmonary hypertension Problem: Chronic Narrative: continue sildanefil. continue steroids. (8) Discharge planning issues Problem: Acute Narrative: Feel she will continue to decline and is on a downward trend with expected life of weeks if not a few months but definitely < 6months, depending on compliance with AVAPS trilogy use. She has stated she wants to be a full code, but this is not congruent with her non-compliance and I therefore feel that Hospice and being a DNR is the only appropriate course of action. Family is agreeable and demanding NH placement as they cannot take care of Ingris at home. Will look at placement tomorrow.
[2018-10-21] MEDS: ROSUVASTATIN CALCIUM 20 MG TABLET PO SCH (20:50)
[2018-10-21] MEDS: ALPRAZolam 0.5 MG TABLET PO PRN (20:54)
[2018-10-22] MEDS: SILDENAFIL CITRATE 20 MG TABLET PO SCH ×2 (01:18→08:21)
[2018-10-22] MEDS: ALBUTEROL SULFATE/IPRATROPIUM 3 ML NEBU IH SCH ×5 (01:55→15:02)
[2018-10-22] MEDS: MORPHINE SULFATE 10 MG/0.5 ML SYRINGE PO PRN (04:07)
[2018-10-22] MEDS: FORMOTEROL FUMARATE 20 MCG/2 ML VIAL IH SCH (06:00)
[2018-10-22] MEDS: INSULIN REGULAR, HUMAN 100 UNITS/ML VIAL SC SCH ×2 (06:45→11:50)
[2018-10-22] MEDS: NYSTATIN 60 ML BTL PO SCH ×2 (08:21→12:04)
[2018-10-22] MEDS: ENALAPRIL MALEATE 5 MG TABLET PO SCH (08:21)
--- NOTE | 2018-10-22 08:56 | PN ---
Progess Note - Interim Date: 10/22/18 Time: 08:52 Narrative: 10/22/18 08:52 Nursing note reports respiratory distress last night, still with confusion and disorientation, refusing BIPAP at times. CO2 is at 73 this am. She is still very lethargic and confused this am. EEW and poor AE arben with accessory muscle use and mod respiratory effort/distress on BIPAP. RML rales. 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 Continue BIPAP for now. Consider change to Trilogy on AVAP setting. needs NH placement as she cannot receive round the clock care at home. Feel Hospice is warranted.
[2018-10-22] MEDS ORDERED: predniSONE 10 MG TABLET PO SCH (09:00)
[2018-10-22] MEDS ORDERED: ENALAPRIL MALEATE 5 MG TABLET PO ONE (11:05)
--- NOTE | 2018-10-22 13:15 | DS ---
(1) Hypercapnemia Problem: Acute (2) COPD exacerbation Problem: Acute (3) Chronic respiratory failure Problem: Chronic Qualifiers: Respiratory failure complication: hypoxia Qualified Code(s): J96.11 - Chron ic respiratory failure with hypoxia (4) Diabetes Problem: Chronic Qualifiers: Diabetes mellitus type: type 2 Diabetes mellitus detention insulin use: without detention use Diabetes mellitus complication status: without complication Qualified Code(s): E11.9 - Type 2 diabetes mellitus without complications (5) Hyperlipidemia Problem: Chronic Qualifiers: Hyperlipidemia type: pure hypercholesterolemia Qualified Code(s): E78.00 - Pure hypercholesterolemia, unspecified; E78.0 - Pure hypercholesterolemia (6) Hypertension Problem: Chronic Qualifiers: Hypertension type: essential hypertension Qualified Code(s): I10 - Essential (primary) hypertension (7) Pulmonary hypertension Problem: Chronic (8) Discharge planning issues Problem: Acute Description of Stay: Pt. admitted for Acute on Chronic COPD exacerbation, Acute on Chronic respiratory failure with hypoxia and severe hypercapnea of 93.4. She was treated with breathing treatments, iv steroids and placed on BIPAP at 15/5 and was increased to 20/5 which did not improve her CO2 below upper 60's, but mainly stayed in the low 70's with continuous use. Her WOB continued to increase despite O2, nebs and morphine and ativan. She was shown to be alert and oriented at time of discharge and was agreeable (as was family) to go to the [facility] and be made a DNR as she did not want to prolong her suffering anymore. She will be discharged with comfort care, utilizing her home Trilogy on AVAP mode with initial settings of Max IPAP of 30 and EPAP of 10 to begin, but to let the machine then auto-regulate on AVAP mode. We will do morpine, ativan, atropine, O2 to keep her comfortable. Procedures Performed: none Results and Findings: Lab Pending Results 10/18/18 10:18: WBC 17.3 H, RBC 3.88 L, Hgb 11.4 L, Hct 39.0, MCV 100.5 H, MCH 29.4, MCHC 29.2 L, RDW 13.6, Plt Count 283, MPV 9.9, Immature Gran % (Auto) 0.60 H, Immature Gran # (Auto) 0.11 H, Neutrophils % 78.0 H, Lymphocytes % 12.0 L, Monocytes % 8.6, Eosinophils % 0.6, Basophils % 0.2, Nucleated RBC % 0.0, Neutrophils # 13.5 H, Lymphocytes # 2.08, Monocytes # 1.5 H, Eosinophils # 0.1, Absolute Basophils 0.0 10/18/18 10:55: Sodium 134, Plasma Sodium 134, Potassium 4.4, Chloride 97, Carbon Dioxide 34.6 H, Anion Gap 6.8, BUN 10 D, Creatinine 0.66, Est GFR (Non- Af Amer) 92 D, BUN/Creatinine Ratio 15.2, Random Glucose 127 H, Calcium 8.5, Calcium Adj for Albumin 9.6, Total Bilirubin 0.4, AST 29, ALT 33, Alkaline Phosphatase 76, Troponin I Less than 0.017, B-Natriuretic Peptide 339, Total Protein 6.2, Albumin 2.2 L 10/18/18 10:55: Lactic Acid, Venous 0.3 L 10/18/18 11:43: pCO2 93.4 H*, pO2 91.8, HCO3 40.7 H, Total CO2 43.6 H, Base Excess 10.5 H, ABG pH 7.26 L, ABG O2 Sat (Measured) 95.2 10/18/18 13:35: pCO2 80.4 H*, pO2 124.7 H, HCO3 38.1 H, Total CO2 40.6 H, Base Excess 8.9 H, ABG pH 7.29 L, ABG O2 Sat (Measured) 97.9 10/19/18 07:30: pCO2 82.6 H*, pO2 84.4, HCO3 38.1 H, Total CO2 40.7 H, Base Excess 8.9 H, ABG pH 7.28 L, ABG O2 Sat (Measured) 94.5 10/20/18 07:32: pCO2 96.6 H*, pO2 103.6, HCO3 36.7 H, Total CO2 39.7 H, Base Excess 5.9 H, ABG pH 7.20 L, ABG O2 Sat (Measured) 96.0 10/20/18 17:55: pCO2 74.6 H*, pO2 89.6, HCO3 36.1 H, Total CO2 38.4 H, Base Excess 7.6 H, ABG pH 7.30 L, ABG O2 Sat (Measured) 95.6 10/21/18 05:47: pCO2 69.9 H, pO2 83.7, HCO3 32.3 H, Total CO2 34.4 H, Base Excess 4.1 H, ABG pH 7.28 L, ABG O2 Sat (Measured) 94.6 10/21/18 12:39: pCO2 73.9 H*, pO2 130.5 H, HCO3 34.7 H, Total CO2 37.0 H, Base Excess 6.2 H, ABG pH 7.29 L, ABG O2 Sat (Measured) 98.1 H 10/22/18 07:35: pCO2 73.3 H*, pO2 52.0 L, HCO3 37.0 H, Total CO2 39.3 H, Base Ex cess 8.5 H, ABG pH 7.32 L, ABG O2 Sat (Measured) 82.5 L Discharge Location: [facility] Disposition: Hospice Home Home Health Agency: [facility] Condition: Poor Discharge Activity: Activity as tolerated Discharge Diet: General/regular food Referrals: Humberto Butler MD [Primary Care Provider] - (will see as needed. would ask Jenn to see her prn as well.) Prescriptions (Any new or edited meds): Morphine Sulfate [Morphine Sulfate Conc. Oral Solution] 10 mg PO Q1H PRN #20 syringe PRN Reason: Pain or respiratory distress Complete Home Medications List: Complete Home Medication List: Enalapril Maleate [Vasotec] 2.5 mg PO DAILY 05/26/16 Polyethylene Glycol 3350 [Miralax] 17 gm PO PRN PRN 05/26/16 Albuterol Sulfate [Ventolin HFA] 2 puff IH Q4H PRN 10/18/16 Ipratropium [place] [Atrovent] 0.5 mg IH Q6H 10/18/16 Albuterol Sulfate/Ipratropium [Duoneb 2.5-0.5MG/3ML Soln] 3 ml IH Q4HRT nebu 01/13/18 albuterol sulfate HFA 90 mcg/actuation aerosol inhaler 2 puff IH Q4H PRN #8.5 g 07/04/18 albuterol sulfate 2.5 mg/3 mL (0.083 %) solution for nebulization 2.5 mg IH QID #375 ml 09/03/18 Morphine Sulfate [Morphine Sulfate Conc. Oral Solution] 10 mg PO Q1H PRN #20 syringe 10/22/18
[2018-10-22 15:56] VITALS: BP 186/73
== END 2018-10-22 16:12 | disposition hospice, home (50) | DRG 189 ==
LOC: ER 10:02 → MS 12:18
PROVIDERS: ADMIT Family Medicine; ATTEND Family Medicine
CPT/HCPCS: 36415; 36600; 71010; 71045; 80053; 82803; 83519; 83605; 83880; 84484; 85025; 87070; 87106; 93005; 94640; 94660; 94760; 96374; 99284